=== PATIENT | male | born 1960 | race Caucasian/White ===

== ENCOUNTER 2016-12-19 18:34 | Inpatient (IN) | payer OTHER ==
[2016-12-19 19:00] LABS: Mean Cell Volume 93.8 fl (78-100); Mean Corpuscular Hemoglobin 32.2 pg (27-31); Mean Corpuscular Hgb Conc 34.3 g/dl (32-36); Mean Platelet Volume 10.2 fl (6.0-9.5); Neutrophil # 7.4 K/mm3 (1.3-6.0); Neutrophil % 73.1 % (42-75.0); Platelet Count 155 K/mm3 (150-450); Red Blood Count 3.73 M/mm3 (4.7-6.0); Red Cell Distribution Width 12.7 % (11.5-14.0); White Blood Count 10.1 K/mm3 (4.0-10.5)
--- NOTE | 2016-12-19 19:07 | ERNOTE ---
Medical Problem HPI - Narrative Date of Service: 12/19/16 - General Chief Complaint: Cellulitis Time Seen by Provider: 12/19/16 18:55 Source: patient Exam Limitations: no limitations - Immun/Allergies/Home Medications Immunizations: IMMUNIZATION HX History of Influenza Vaccine Yes Hx Pneumococcal Vaccination Yes Allergies/Adverse Reactions: Allergies cefazolin Allergy (Unknown, Verified 12/19/16 19:06) Vomiting Home Medications: HOME MEDICATIONS Cefadroxil [Duricef] 500 mg PO BID 10/13/16 [Last Taken 10/12/16] Citalopram Hydrobromide [Celexa] 20 mg PO DAILY 10/13/16 [Last Taken 10/12/16] Clopidogrel Bisulfate [Plavix] 75 mg PO DAILY 10/13/16 [Last Taken 10/13/16] Cyanocobalamin [Vitamin B-12] 1,000 mcg IM Q30D 10/13/16 [Last Taken Unknown] Gabapentin 600 mg PO BID 10/13/16 [Last Taken 10/12/16] Glimepiride [Amaryl] 2 mg PO DAILY 10/13/16 [Last Taken 10/12/16] Insulin Glargine,Hum.rec.anlog [Lantus] 30 units SC QAM 10/13/16 [Last Taken 03/24] Insulin Glargine,Hum.rec.anlog [Lantus] 60 units SC HS 10/13/16 [Last Taken 02/21] Ipratropium/Albuterol Sulfate [Combivent Respimat Inhal [place]] 1 puff IH QID 03/24 [Last Taken 10/12/16] Isosorbide Mononitrate [Imdur] 30 mg PO DAILY 10/13/16 [Last Taken 10/12/16] LORazepam [Ativan] 0.5 mg PO TID PRN 10/13/16 [Last Taken Unknown] Lisinopril [Zestril] 20 mg PO DAILY 10/13/16 [Last Taken 10/13/16] Metformin HCl [Metformin HCl ER] 1,000 mg PO BID 10/13/16 [Last Taken 10/13/16] Metoprolol Tartrate [Lopressor] 25 mg PO BID 10/13/16 [Last Taken 10/13/16] Nabumetone [Relafen] 500 mg PO BID 10/13/16 [Last Taken 10/13/16] Ranitidine HCl [Zantac] 150 mg PO BID 10/13/16 [Last Taken 10/13/16] Simvastatin 20 mg PO HS 10/13/16 [Last Taken 10/12/16] Sulfamethoxazole/Trimethoprim [Bactrim Ds] 1 tab PO BID #20 tab 10/13/16 [Last Taken Unknown] - History of Present History Narrative: Pt presents to the ER from wound clinic today, with c/o right foot ulcer, present for several months. Pt has been attending wound care clinic to address this wound, and despite multiple regiments of oral antibiotic, wound continues to worsen. Pt is a diabetic. Timing: constant, getting worse Severity: severe Review of Systems - Review of Systems Constitutional: Present: no symptoms reported EYE: Present: no symptoms reported ENT: Present: no symptoms reported Respiratory: Present: no symptoms reported Cardiology: Present: no symptoms reported Gastrointestinal/Abdominal: Present: no symptoms reported Genitourinary: Present: no symptoms reported Musculoskeletal: Present: See HPI Skin: Present: See HPI Neurological: Present: no symptoms reported Endocrine: Present: no symptoms reported Hematologic/Lymphatic: Present: no symptoms reported Psych: Present: no symptoms reported All Other Systems: All systems neg except as marked - Patient's Past Medical History Patient History - Medical: Diabetes Type 2, GERD, Obesity, Osteoarthritis Patient History - Cardiac/Respiratory: COPD, CVA/Stroke, Hypertension, Hyperlipidemia, Peripheral Vascular Disease Patient History - Cancer: No Hx of Cancer, Skin Patient History - Other: None - Family History Mother Family History - Medical: , Diabetes Type 2 Family History - Cardiac/Respiratory: CHF, Hypertension Father Family History - Medical: Family History - Cardiac/Respiratory: Hypertension - Social History Living Situations: home Abuse History: No History of abuse Psych History: No pertinent hx Alcohol Use: none Drug Use: none - Immunizations Hx Pneumococcal Vaccination: Yes History of Influenza Vaccine: Yes Physical Exam - Physical Exam General Appearance: Present: wd/wn, alert, no apparent distress Neck: Present: normal inspection, nontender Respiratory: Present: no respiratory distress, normal breath sounds, no accessory muscle use, chest nontender, lungs clear Cardiovascular/Chest: Present: regular rate, rhythm, no murmur Extremity Exam: Present: other - normal, except for right foot: Erythema of dorsal area, extending from mid section to forefoot. Large ulcer with eschar, approx 5 cm x 3 cm on lateral aspect of foot, with serosanguinous drainage. Neurological Exam: Present: alert, oriented, normal mood/affect Skin Exam: Present: other - normal, except for right foot: Erythema of dorsal area, extending from mid section to forefoot. Large ulcer with eschar, approx 5 cm x 3 cm on lateral aspect of foot, with serosanguinous drainage. ED Progress - Results and Orders Patient's Lab Results:: I have reviewed the patient's lab results. - Vital Signs Patient's Vital Signs:: I have reviewed the patient's vital signs. Vital Signs: Vital Signs 12/19/16 12/19/16 14:49 18:34 Temperature 37.7 C H Blood Pressure 134/72 Plan - Plan Plan: Case discussed with on-call physician, Dr. Ng; will admit to [facility]. Plan to treat with IV antibiotics, namely Zosyn and Vanocmycin. Departure - Departure Clinical Impression: Hyponatremia Diabetic foot ulcer associated with type 2 diabetes mellitus Qualifiers: Laterality: right Qualified Code(s): E11.621 - Type 2 diabetes mellitus with foot ulcer Disposition: [facility] Condition: Stable
[2016-12-19 19:16] LABS: Albumin * 3.1 gm/dl (3.4-5.0); Anion Gap 14.3 mmol/L (6.8-13.8); BUN/Creatinine Ratio 19.2 (9.0-21.6); Bilirubin, Total 0.5 mg/dL (0.0-1.1); Ca. Corrected For Albumin 9.1 mg/dL (8.4-10.2); Calcium * 8.7 mg/dL (7.9-10.9); Potassium 4.3 mmol/L (3.4-4.6); Total Protein 8.4 gm/dL (6.2-8.2)
--- OUTSIDE RECORDS SUMMARY | 2016-12-19 19:21 | XMS REPORT | Continuity of Care Document ---
:1960 Author Organization [facility] ([facility]) Address [address] [place] [address] Phone [phone] Care Team Providers Name Role Phone Kush Perez Primary Care Provider [phone] Source Comments This disclosure is being made pursuant to the Care Everywhere program, applicable federal and state laws, and may not contain all informaitonavailable regarding this patient.[facility] ([facility]) Active Allergies and Adverse Reactions Allergen Noted Date Severity Reactions Comments Cephalexin Nausea & Vomiting,Stomach Pain Current Medications Prescription Sig. Disp. Refills Start Date End Date Status Chlorpheniramine take by mouth 3 Active Maleate 4 mg Cap times daily. clopidogrel (PLAVIX) 75 take 75 mg by mouth Active mg tablet daily. insulin glargine inject 60 Units Active (LANTUS) 100 unit/mL subcutaneously at injection bedtime. 60 units sub-q at HS metFORMIN (GLUCOPHAGE) take 850 mg by mouth Active 850 mg tablet 3 times daily. metoPROLol (LOPRESSOR) take 25 mg by mouth 2 Active 25 mg tablet times daily. MULTIVITAMINS (MULTIPLE take by mouth. Active VITAMIN PO) nitroglycerin place 0.4 mg under Active (NITROSTAT) 0.4 mg SL the tongue every 5 tablet minutes as needed for Chest pain. Ranitidine HCl (ZANTAC) take 150 mg by mouth Active 150 mg Cap 2 times daily. simvastatin (ZOCOR) 10 take 2 Tabs by mouth Active mg tablet every evening. paroxetine (PAXIL CR) take 37.5 mg by mouth Active 37.5 mg CR tablet daily. isosorbide mononitrate take 30 mg by mouth Active (IMDUR) 30 mg CR tablet Every morning. insulin lispro inject 20 Units Active (HUMALOG) 100 unit/mL subcutaneously 3 cartridge times daily before meals. SYRINGE W-NDL, DISP., 4 times daily. Active INSULIN (INSULIN SYRINGE-NEEDLE U-100) METHOCARBAMOL Take by mouth. Active (ROBAXIN-750 PO) lisinopril (PRINIVIL) Take 20 mg by mouth Active 20 mg tablet daily. Active Problems Problem Noted Date HTN 05/10/2009 Type II or unspecified type diabetes mellitus with peripheral circulatory 12/2008 disorders, not stated as uncontrolled(250.70) CVA (cerebral infarction) 05/10/2009 Mixed hyperlipidemia 05/10/2009 Morbid obesity 06/26/2002 Primary localized osteoarthrosis, lower leg 06/26/2002 Social History Tobacco Use Types Packs/Day Years Used Date Current Every Day Smoker Cigarettes 1 36 Smokeless Tobacco: Never Used Comments:had smoked up to 3ppd Alcohol Use Drinks/Week oz/Week Comments No Last Filed Vital Signs Vital Sign Reading Time Taken Blood Pressure 112/60 01/20/2011 1:34 PM CDT Pulse 76 01/20/2011 1:34 PM CDT Temperature 36.1 C (97 F) 01/20/2011 1:34 PM CDT Respiratory Rate 24 01/20/2011 1:34 PM CDT Height 1.93 m (6' 3.98") 10/17/2010 10:25 AM [employer] Weight 129.729 kg (286 lb) 01/20/2011 1:34 PM CDT Body Mass Index 34.83 01/20/2011 1:34 PM CDT Oxygen Saturation 94% 11/21/2008 2:00 PM [employer]IO INST[employer] Plan of Care Health Maintenance Due Date Last Done Comments HCV Screening 1960 Hepatitis B Vaccine (1 of 3 - 1960 Primary Series) Tdap Vaccine 1970 MMR Vaccine 1977 Td Vaccine 1977 Pneumococcal Vaccine (1 of 1 1978 - PPSV23) Colonoscopy 04/01/2009 Prostate Cancer Screening 2009 DIABETIC: Cholesterol 11/21/2009 11/21/2008 Diabetic: Hdl 11/21/2009 11/21/2008 Diabetic: Ldl 11/21/2009 11/21/2008 DIABETIC: Triglycerides 11/21/2009 11/21/2008 DIABETIC: Microalbumin 05/24/2010 05/24/2009 DIABETIC: Foot Exam 03/21/2011 DIABETIC: Retinal Eye Exam 03/21/2011 DIABETIC: Hemoglobin A1C 04/16/2011 10/17/2010, Additional history exists 05/24/2009, 11/21/2008 Influenza Vaccine: Seasonal 05/08/2016 (#1) Results from Last 3 Months Not on file
[2016-12-19] MEDS ORDERED: WATER IV SCH ×2 (20:00)
[2016-12-19] MEDS ORDERED: DEXTROSE 5% IV SCH ×2 (20:00)
[2016-12-19] MEDS ORDERED: VANCOMYCIN HCL IV SCH ×2 (20:00)
[2016-12-19] MEDS: PIPERACILLIN SODIUM/TAZOBACTAM 3.375 GM in DEXTROSE 5 % IN WATER 100 ML IV SCH ×2 (20:29)
--- OUTSIDE RECORDS SUMMARY | 2016-12-19 21:51 | XMS REPORT | Continuity of Care Document ---
:1960 Author Organization [facility] ([facility]) Address [address] [place] [address] Phone [phone] Care Team Providers Name Role Phone Kush Perez Primary Care Provider [phone] Source Comments This disclosure is being made pursuant to the Care Everywhere program, applicable federal and state laws, and may not contain all informaitonavailable regarding this patient.[facility] ([facility]) Active Allergies and Adverse Reactions Allergen [...] 1.93 m (6' 3.98") 10/17/2010 10:25 AM [employer]ERRICK MAN Weight 129.729 kg (286 lb) 01/20/2011 1:34 PM CDT Body Mass Index 34.83 01/20/2011 1:34 PM CDT Oxygen Saturation 94% 11/21/2008 2:00 PM [employer]ERRICK MAN Plan of Care Health Maintenance Due Date [...]
--- NOTE | 2016-12-19 23:32 | HP ---
Chief Complaint - Chief Complaint Date of Service: 12/19/16 Time of Service: 22:00 Chief Complaint: Chronic right foot ulcer and new ulceration History of Present Illness: 56 years old male adm to the hospital from the ER with reports of right foot diabetic ulcer, cellulitis and formation of new ulceration to right foot. Pt stated he was seen by Dr Alston a few weeks ago and was taking Bactrim BID and has not missed any dose. Despite his compliance he notice new ulcer forming adjacent to existing ulcer on right foot. Pt stated he was seen at wound clinic for new ulcers and pain a few days prior that self resolved. 12/19/16 I/D of ulcers and specimen was collected and sent to lab. Due to pt failure on out-pt therapy he was sent to the ER for IV antbx in-pt. Vanco and zosyn was initiated in ER, MRI right foot pending, pt denies fever chills, palpitation, drainage of wounds prior to adm. PMH significant for diabetes, hypertension, smoker and OK. Plan of care discussed with pt he verbalized understandings and agree. - Patient's Past Medical History Patient History - Medical: Diabetes Type 2, GERD, Obesity, Osteoarthritis, Other - smoker, diabetic neuropathy, diabetic ulcer Patient History - Cardiac/Respiratory: Hypertension, Hyperlipidemia, Peripheral Vascular Disease Patient History - Cancer: No Hx of Cancer, Skin Patient History - Other: None - Family History Mother Family History - Medical: , Diabetes Type 2 Family History - Cardiac/Respiratory: CHF, Hypertension Father Family History - Medical: Family History - Cardiac/Respiratory: Hypertension - Social History Living Situations: home Abuse History: No History of abuse Psych History: No pertinent hx Have you smoked in the past 12 months: Yes Do you dip or chew tobacco: No Alcohol Use: none Drug Use: none - Immunizations Hx Pneumococcal Vaccination: Yes History of Influenza Vaccine: Yes Review Of Systems (GEN) - Review of Systems Generalized/Overall Review: Present: No Symptoms Reported EENTM: Present: No Symptoms Reported Respiratory: Present: No Symptoms Reported Cardiac: Present: No Symptoms Reported Abdominal: Present: No Symptoms Reported Genitourinary: Present: No Symptoms Reported Musculoskeletal: Present: No Symptoms Reported Neurological: Present: No Symptoms Reported Skin: Present: Other - right foot diabetic ulcer, cellulitis Endocrine: Present: No Symptoms Reported Allergies/Adverse Reactions: Allergies Allergy/AdvReac Type Severity Reaction Status Date / Time cefazolin Allergy Intermediate Vomiting Verified 12/19/16 23:45 Home Medications: HOME MEDICATIONS Cefadroxil [Duricef] 500 mg PO BID 10/13/16 [Last Taken 10/12/16] Citalopram Hydrobromide [Celexa] 20 mg PO DAILY 10/13/16 [Last Taken 10/12/16] Clopidogrel Bisulfate [Plavix] 75 mg PO DAILY 10/13/16 [Last Taken 10/13/16] Cyanocobalamin [Vitamin B-12] 1,000 mcg IM Q30D 10/13/16 [Last Taken Unknown] Gabapentin 600 mg PO BID 10/13/16 [Last Taken 10/12/16] Glimepiride [Amaryl] 2 mg PO DAILY 10/13/16 [Last Taken 10/12/16] Insulin Glargine,Hum.rec.anlog [Lantus] 30 units SC QA 10/13/16 [Last Taken 03/24] Insulin Glargine,Hum.rec.anlog [Lantus] 60 units SC HS 10/13/16 [Last Taken 02/21] Ipratropium/Albuterol Sulfate [Combivent Respimat Inhal [place]] 1 puff IH QID 03/24 [Last Taken 10/12/16] Isosorbide Mononitrate [Imdur] 30 mg PO DAILY 10/13/16 [Last Taken 10/12/16] LORazepam [Ativan] 0.5 mg PO TID PRN 10/13/16 [Last Taken Unknown] Lisinopril [Zestril] 20 mg PO DAILY 10/13/16 [Last Taken 10/13/16] Metformin HCl [Metformin HCl ER] 1,000 mg PO BID 10/13/16 [Last Taken 10/13/16] Metoprolol Tartrate [Lopressor] 25 mg PO BID 10/13/16 [Last Taken 10/13/16] Nabumetone [Relafen] 500 mg PO BID 10/13/16 [Last Taken 10/13/16] Ranitidine HCl [Zantac] 150 mg PO BID 10/13/16 [Last Taken 10/13/16] Simvastatin 20 mg PO HS 10/13/16 [Last Taken 10/12/16] Sulfamethoxazole/Trimethoprim [Bactrim Ds] 1 tab PO BID #20 tab 10/13/16 [Last Taken Unknown] Exam - Exam Vital Signs: Vital Signs - Last Taken Temp 37.3 C 12/19/16 20:00 Pulse 100 12/19/16 22:06 Resp 16 12/19/16 22:06 BP 115/76 12/19/16 22:06 Pulse Ox 98 12/19/16 22:06 Constitutional: Present: Alert, Oriented x3, Cooperative, Well developed, No distress, Middle aged ENT Exam: Present: moist mucous membranes Eye Exam: bilateral eye: PERRL Neck: Present: full range of motion Back Exam: Present: normal inspection Respiratory: Present: chest non-tender, lungs clear, normal breath sounds, no respiratory distress Cardiovascular/Chest: Present: normal peripheral pulses, regular rate, rhythm, no chest tenderness, no edema Abdomen: Present: Normal bowel sounds, soft, nontender, nondistended, no rebound tenderness /Rectal: Present: Exam deferred Extremity: Present: normal range of motion, swelling - right foot Skin Exam: Present: other - right foot cellulitis, diabetic ulcers Lymphatic: Present: no adenopathy Neurologic: Present: oriented x 3 Appearance: Present: appropriate insight Eye contact: Present: cooperative Thoughts: Present: normal thought pattern Diagnostic Studies: Laboratory Results WBC 10.1 K/mm3 (4.0-10.5) 12/19/16 18:45 RBC 3.73 M/mm3 (4.7-6.0) L 12/19/16 18:45 Hgb 12.0 gm/dL (13.5-18.0) L 12/19/16 18:45 Hct 35.0 % (42.0-52.0) L 12/19/16 18:45 MCV 93.8 fl (78-100) 12/19/16 18:45 MCH 32.2 pg (27-31) H 12/19/16 18:45 MCHC 34.3 g/dl (32-36) 12/19/16 18:45 RDW 12.7 % (11.5-14.0) 12/19/16 18:45 Plt Count 155 K/mm3 (150-450) 12/19/16 18:45 MPV 10.2 fl (6.0-9.5) H 12/19/16 18:45 Immature Gran % (Auto) 0.80 % (0.001-0.429) H 12/19/16 18:45 Immature Gran # (Auto) 0.08 K/mm3 (0.000-0.0310) H 12/19/16 18:45 Neutrophils % 73.1 % (42-75.0) 12/19/16 18:45 Lymphocytes % 16.9 % (20-51) L 12/19/16 18:45 Monocytes % 8.1 % (0.0-9) 12/19/16 18:45 Eosinophils % 0.9 % (0.0-3.0) 12/19/16 18:45 Basophils % 0.2 % (0.0-1.0) 12/19/16 18:45 Nucleated RBC % 0.0 k/mm3 (0-1) 12/19/16 18:45 Neutrophils # 7.4 K/mm3 (1.3-6.0) H 12/19/16 18:45 Lymphocytes # 1.7 k/mm3 (1.5-3.5) 12/19/16 18:45 Monocytes # 0.8 k/mm3 (0.0-1.0) 12/19/16 18:45 Eosinophils # 0.1 k/mm3 (0.0-0.7) 12/19/16 18:45 Absolute Basophils 0.0 k/mm3 (0.0-0.1) 12/19/16 18:45 ESR 102 mm/hr (0-10) H 12/19/16 18:45 Sodium 129 mmol/L (132-142) L 12/19/16 18:45 Plasma Sodium 129 mmol/L (130-142) L 12/19/16 18:45 Potassium 4.3 mmol/L (3.4-4.6) 12/19/16 18:45 Chloride 94 mmol/L (97-106) L 12/19/16 18:45 Carbon Dioxide 25.0 mmol/L (24-32.6) 12/19/16 18:45 Anion Gap 14.3 mmol/L (6.8-13.8) H 12/19/16 18:45 BUN 20 mg/dL (6-23) D 12/19/16 18:45 Creatinine 1.04 mg/dL (0.4-1.4) 12/19/16 18:45 Est GFR (Non-Af Amer) 78 mL/min (60-130) 12/19/16 18:45 BUN/Creatinine Ratio 19.2 (9.0-21.6) 12/19/16 18:45 Random Glucose 129 mg/dL (70-110) H 12/19/16 18:45 Calcium 8.7 mg/dL (7.9-10.9) 12/19/16 18:45 Calcium Adj for Albumin 9.1 mg/dL (8.4-10.2) 12/19/16 18:45 Total Bilirubin 0.5 mg/dL (0.0-1.1) 12/19/16 18:45 AST 17 U/L (0-48) 12/19/16 18:45 ALT 18 U/L (19-67) L 12/19/16 18:45 Alkaline Phosphatase 116 U/L (50-170) 12/19/16 18:45 C-Reactive Prot, Quant 14.4 mg/dL (0.0-0.9) H 12/19/16 18:45 Total Protein 8.4 gm/dL (6.2-8.2) H 12/19/16 18:45 Albumin 3.1 gm/dl (3.4-5.0) L 12/19/16 18:45 Assessment/Plan - Narrative Narrative: Diabetic ulcer right foot with new developed ulcer and abscess Pt failed out-pt antbx therapy oral Bactrim BID He was seen in wound clinic today with Dr Alston had I/D of right foot. Out-pt X-ray of right foot result still pending MRI right foot, Wound cultures and blood culture pending Initiated IV antbx vanco and zosyn, pharmacy to dose. 10/24 CRP 1.4---->14.4 on this adm, will trend 10/24 ESR 28---->102 on this adm Monitor CBC and cmp in am Consult Dr Alston for wound care Cellulitis right foot On adm temp 37.7--->37.3 WBC_ WNL Plan same as #1 Hyponatremia On adm Na+ 129 Normal saline @100ml/hr monitor CMP in am Diabetic Acc-check AC+HS and low dose SSI may resume home dose of medications when list is provided Consistent carb diet A1c pending Substance abuse smoking cessation Nicotine patch Hypertension- stable On adm BP 115/76 Monitor vital signs Code status: Full VTE ppx: SCd and ambulate Anticipate discharge home 1-3 days possible out-pt IV antbx and follow up with Dr Alston Time 45 minutes - Assessment/Plan (1) Diabetic foot ulcer associated with type 2 diabetes mellitus Problem: Acute Qualifiers: Laterality: right Qualified Code(s): E11.621 - Type 2 diabetes mellitus with foot ulcer; L97.519 - Non-pressure chronic ulcer of other part of right foot with unspecified severity (2) Hyponatremia Problem: Acute (3) DM type 2 (diabetes mellitus, type 2) Problem: Chronic (4) Hypertension Problem: Chronic Qualifiers: Hypertension type: essential hypertension Qualified Code(s): I10 - Essential (primary) hypertension
[2016-12-20] MEDS ORDERED: NORMAL SALINE 1,000 ML IV PRN (01:22)
[2016-12-20] MEDS: PIPERACILLIN SODIUM/TAZOBACTAM 3.375 GM in DEXTROSE 5 % IN WATER 100 ML IV SCH ×8 (03:05→18:29)
[2016-12-20 07:08] LABS: Hemoglobin 11.2 gm/dL (13.5-18.0); Mean Cell Volume 93.2 fl (78-100); Mean Corpuscular Hemoglobin 31.6 pg (27-31); Mean Corpuscular Hgb Conc 33.9 g/dl (32-36); Mean Platelet Volume 10.9 fl (6.0-9.5); Neutrophil # 3.5 K/mm3 (1.3-6.0); Neutrophil % 66.6 % (42-75.0); Platelet Count 128 K/mm3 (150-450); Red Blood Count 3.54 M/mm3 (4.7-6.0); Red Cell Distribution Width 12.6 % (11.5-14.0); White Blood Count 5.3 K/mm3 (4.0-10.5)
[2016-12-20] MEDS: INSULIN LISPRO 100 UNITS/ML VIAL SC SCH ×4 (07:20→20:08)
[2016-12-20 07:24] LABS: Albumin * 2.7 gm/dl (3.4-5.0); Anion Gap 14.6 mmol/L (6.8-13.8); BUN/Creatinine Ratio 16.9 (9.0-21.6); Bilirubin, Total 0.6 mg/dL (0.0-1.1); CRP 11.6 mg/dL (0.0-0.9); Calcium * 8.3 mg/dL (7.9-10.9); Carbon Dioxide 23.8 mmol/L (24-32.6); Potassium 4.4 mmol/L (3.4-4.6); Total Protein 7.4 gm/dL (6.2-8.2)
[2016-12-20 07:33] LABS: Hemoglobin A1C 6.8 % (4.00-6.0)
[2016-12-20] MEDS: VANCOMYCIN HCL 1.5 GM in DEXTROSE 5 % IN WATER 500 ML IV SCH ×4 (10:42→22:43)
[2016-12-20] MEDS: NICOTINE 21 MG PATC TD SCH (10:50)
[2016-12-20] MEDS ORDERED: ENOXAPARIN SODIUM 40 MG/0.4 ML SYRG SC SCH (15:00)
[2016-12-20] MEDS: CITALOPRAM HYDROBROMIDE 20 MG TABLET PO SCH (17:46)
[2016-12-20] MEDS: METOPROLOL TARTRATE 25 MG TABLET PO SCH ×2 (17:47→20:24)
[2016-12-20] MEDS: GABAPENTIN 600 MG TABLET PO SCH ×2 (17:47→20:23)
[2016-12-20] MEDS: FAMOTIDINE 20 MG TABLET PO SCH ×2 (17:48→20:23)
[2016-12-20] MEDS: ISOSORBIDE MONONITRATE 30 MG TAB.SR.24H PO SCH (17:48)
[2016-12-20] MEDS: CLOPIDOGREL BISULFATE 75 MG TABLET PO SCH (17:48)
[2016-12-20] MEDS: LISINOPRIL 20 MG TABLET PO SCH (17:49)
[2016-12-20] MEDS: ALBUTEROL SULFATE/IPRATROPIUM 3 ML NEBU IH SCH ×2 (19:04→19:05)
[2016-12-20] MEDS: INSULIN GLARGINE,HUM.REC.ANLOG 100 UNITS/ML VIAL SC SCH (20:08)
[2016-12-20] MEDS: SIMVASTATIN 20 MG TABLET PO SCH (20:24)
[2016-12-20] MEDS ORDERED: ALBUTEROL SULFATE/IPRATROPIUM 3 ML NEBU IH PRN (21:06)
--- NOTE | 2016-12-20 21:21 | PN ---
Subjective - Date and Time Seen Date: 12/20/16 Time: 19:30 Subjective Narrative: patient seen today after dressing change, he stated it was a little painful during dressing change. Wound site with erythema that have not gotten any worst. Pt denies fever, chills and drainage from wound site. MRI right foot was done and result still pending. Objective - Review of Systems Generalized/Overall Review: Reports: No Symptoms Reported EENTM: Reports: No Symptoms Reported Respiratory: Reports: No Symptoms Reported Cardiac: Reports: No Symptoms Reported Abdominal: Reports: No Symptoms Reported Genitourinary Symptoms: Reports: No Symptoms Reported Musculoskeletal Complaints: Reports: No Symptoms Reported Neurological: Reports: No Symptoms Reported Skin: Reports: Other - right foot diabetic ulcer and cellulitis Endocrine: Reports: No Symptoms Reported - Vitals Vitals: Last Vital Signs Temp 36.7 C 12/20/16 19:56 Pulse 78 12/20/16 20:24 Resp 20 12/20/16 19:56 BP 111/61 12/20/16 20:24 Pulse Ox 94 12/20/16 19:56 - Abnormal Lab Findings Abnormal Lab Findings: Abnormal Lab Results 12/20/16 12/20/16 12/20/16 Range/Units 06:50 06:50 06:50 RBC 3.54 L (4.7-6.0) M/mm3 Hgb 11.2 L (13.5-18.0) gm/dL Hct 33.0 L (42.0-52.0) % MCH 31.6 H (27-31) pg Plt Count 128 L (150-450) K/mm3 MPV 10.9 H (6.0-9.5) fl Immature Gran % (Auto) 0.80 H (0.001-0.429) % Immature Gran # (Auto) 0.04 H (0.000-0.0310) K/mm3 Monocytes % 9.4 H (0.0-9) % Lymphocytes # 1.1 L (1.5-3.5) k/mm3 Sodium 131 L (132-142) mmol/L Carbon Dioxide 23.8 L (24-32.6) mmol/L Anion Gap 14.6 H (6.8-13.8) mmol/L Random Glucose 154 H (70-110) mg/dL Hemoglobin A1c 6.8 H (4.00-6.0) % ALT 15 L (19-67) U/L C-Reactive Prot, Quant 11.6 H (0.0-0.9) mg/dL Albumin 2.7 L (3.4-5.0) gm/dl - Exam Constitutional: Present: Alert, Oriented x3, Cooperative, Well developed, No distress ENT Exam: Present: moist mucous membranes Neck: Present: full range of motion Breasts: Present: Exam deferred Respiratory: Present: chest non-tender, normal breath sounds, no respiratory distress, decreased breath sounds Cardiovascular/Chest: Present: normal peripheral pulses, regular rate, rhythm, no chest tenderness Abdomen: Present: Normal bowel sounds, soft, nontender, nondistended, no rebound tenderness /Rectal: Present: Exam deferred Extremity: Present: lower extremity edema - right foot with diabetic ulcer, pedal edema - right foot, slow capillary refill - right pedal, swelling - right leg Skin Exam: Present: other - erythema right foot Neurologic: Present: oriented x 3 Appearance: Present: appropriate appearance Eye contact: Present: cooperative Thoughts: Present: normal thought pattern Assessment/Plan Plan Narrative: Diabetic ulcer right foot with new developed ulcer and abscess Pt failed out-pt antbx therapy while on oral Bactrim BID 12/19/16 seen at wound clinic with Dr Alsotn had I/D of right foot. Out-pt X-ray of right foot:pending results MRI right foot: still pending Wound cultures and blood culture pending Continue with IV antbx vanco and zosyn, pharmacy to dose. CRP on this adm 14.4 ---->11.6 trending down 10/24 ESR 28---->102 on this adm Monitor CBC and cmp in am Consult Dr Alston for wound care Cellulitis right foot On adm temp 37.7--->37.3---> remain afebrile since adm WBC_ WNL Plan same as #1 Hyponatremia- gradually improving On adm Na+ 129--->131 D/C Normal saline @100ml/hr monitor CMP in am Diabetic Acc-check AC+HS and low dose SSI Resumed home dose of medications Consistent carb diet A1c 6.8 Substance abuse smoking cessation Nicotine patch Hypertension- stable Monitor vital signs Continue home medication Code status: Full VTE ppx: SCd and ambulate Anticipate discharge home 1-2 days possible out-pt IV antbx and follow up with Dr Alston Time 20 minutes - Problems/Diagnosis (1) Diabetic foot ulcer associated with type 2 diabetes mellitus Problem: Acute Qualifiers: Laterality: right Qualified Code(s): E11.621 - Type 2 diabetes mellitus with foot ulcer; L97.519 - Non-pressure chronic ulcer of other part of right foot with unspecified severity (2) Hyponatremia Problem: Acute (3) DM type 2 (diabetes mellitus, type 2) Problem: Chronic (4) Hypertension Problem: Chronic Qualifiers: Hypertension type: essential hypertension Qualified Code(s): I10 - Essential (primary) hypertension
[2016-12-21] MEDS: PIPERACILLIN SODIUM/TAZOBACTAM 3.375 GM in DEXTROSE 5 % IN WATER 100 ML IV SCH ×4 (04:14→14:25)
[2016-12-21 06:25] LABS: Hematocrit 31.8 % (42.0-52.0); Hemoglobin 10.5 gm/dL (13.5-18.0); Mean Cell Volume 96.1 fl (78-100); Mean Corpuscular Hemoglobin 31.7 pg (27-31); Mean Platelet Volume 10.8 fl (6.0-9.5); Platelet Count 132 K/mm3 (150-450); Red Blood Count 3.31 M/mm3 (4.7-6.0); Red Cell Distribution Width 12.7 % (11.5-14.0); White Blood Count 4.7 K/mm3 (4.0-10.5)
[2016-12-21 06:28] LABS: Total Cells Counted 100
[2016-12-21 06:35] LABS: Anion Gap 12.4 mmol/L (6.8-13.8); BUN/Creatinine Ratio 12.9 (9.0-21.6); CRP 6.9 mg/dL (0.0-0.9); Calcium * 8.5 mg/dL (7.9-10.9); Carbon Dioxide 27.1 mmol/L (24-32.6); Estimated Creat Clear 117.7; Potassium 4.5 mmol/L (3.4-4.6)
[2016-12-21 06:59] LABS: Atypical (Reactive) Lymph 6 % (0-2); Eosinophil 6 % (0-3); Hypochromia Trace; Lymphocyte 17 % (20-51); Monocyte 3 % (0-9); Neutrophil 68 % (42-75); Neutrophil # 3.2 K/mm3 (1.3-6.0); Platelet Estimate Decreased (NORMAL)
[2016-12-21] MEDS: INSULIN LISPRO 100 UNITS/ML VIAL SC SCH ×4 (07:08→20:31)
[2016-12-21] MEDS: CITALOPRAM HYDROBROMIDE 20 MG TABLET PO SCH (08:55)
[2016-12-21] MEDS: ISOSORBIDE MONONITRATE 30 MG TAB.SR.24H PO SCH (08:56)
[2016-12-21] MEDS: LISINOPRIL 20 MG TABLET PO SCH (08:57)
[2016-12-21] MEDS: INSULIN GLARGINE,HUM.REC.ANLOG 100 UNITS/ML VIAL SC SCH ×2 (08:57→20:47)
[2016-12-21] MEDS: METOPROLOL TARTRATE 25 MG TABLET PO SCH ×2 (08:58→20:43)
[2016-12-21] MEDS: FAMOTIDINE 20 MG TABLET PO SCH ×2 (08:58→20:44)
[2016-12-21] MEDS: CLOPIDOGREL BISULFATE 75 MG TABLET PO SCH (08:59)
[2016-12-21] MEDS: GABAPENTIN 600 MG TABLET PO SCH ×2 (08:59→20:43)
[2016-12-21] MEDS: NICOTINE 21 MG PATC TD SCH (09:03)
[2016-12-21] MEDS: VANCOMYCIN HCL 1.5 GM in DEXTROSE 5 % IN WATER 500 ML IV SCH ×4 (09:05→21:27)
--- NOTE | 2016-12-21 12:09 | PN ---
Subjective - Date and Time Seen Date: 12/21/16 Time: 12:00 Subjective Narrative: Mr. Tyler had no acute events overnight. He remains afebrile. He reports less pain in the right foot. Preliminary cultures returned growing staph aureus. Sensitivities will be available tomorrow. MRI of the foot was obtained on 12/19 which showed definite osteomyelitis of the right fifth metatarsal. He will be seen by Dr. Alston today. His appetite is good. He reports blood glucose has been well controlled we'll hospitalize. No nausea or vomiting. No chest pain or shortness of breath. Objective - Review of Systems Generalized/Overall Review: Reports: No Symptoms Reported Musculoskeletal Complaints: Reports: Other - Minimal pain in the right foot with dressing changes. - Vitals Vitals: Last Vital Signs Temp 37 C 12/21/16 11:24 Pulse 86 12/21/16 11:24 Resp 20 12/21/16 11:24 BP 114/78 12/21/16 11:24 Pulse Ox 98 12/21/16 11:24 - Abnormal Lab Findings Abnormal Lab Findings: Abnormal Lab Results 12/21/16 12/21/16 Range/Units 06:17 06:17 RBC 3.31 L (4.7-6.0) M/mm3 Hgb 10.5 L (13.5-18.0) gm/dL Hct 31.8 L (42.0-52.0) % MCH 31.7 H (27-31) pg Plt Count 132 L (150-450) K/mm3 MPV 10.8 H (6.0-9.5) fl Lymphocytes % (Manual) 17 L (20-51) % Eosinophils % (Manual) 6 H (0-3) % Lymphocytes # (Manual) 0.8 L (1.5-3.5) k/mm3 Atypic/Reactive Lymphs 6 H (0-2) % Platelet Estimate Decreased L (NORMAL) Random Glucose 147 H (70-110) mg/dL C-Reactive Prot, Quant 6.9 H (0.0-0.9) mg/dL - Exam Constitutional: Present: Alert, Oriented x3, Cooperative ENT Exam: Present: normal ENT inspection Respiratory: Present: chest non-tender, lungs clear, normal breath sounds Cardiovascular/Chest: Present: normal peripheral pulses, regular rate, rhythm, no chest tenderness Abdomen: Present: Normal bowel sounds, soft, nontender Extremity: Present: normal range of motion, pedal edema - Mild edema in the RLE , mainly around ankle. Skin Exam: Present: other - Right lower extremity remains warm. Erythema is improving. Wound examined today. Black eschar with some slough in the wound base. malodorous. Moderate amount of yellow, thin drainage. Neurologic: Present: [facility] [facility] psychiatrist II-XII nml as tested Appearance: Present: appropriate appearance Assessment/Plan - Problems/Diagnosis (1) Hyponatremia Problem: Acute Narrative: Improving. Continue to monitor. (2) DM type 2 (diabetes mellitus, type 2) Problem: Chronic Narrative: Blood glucose has ranged from 128-234 mg/dL over the past 24 hours, and he received a total of 3 units of Humalog and 90 units of glargine. Continue glargine at current dose of 30 units every morning and 60 units every evening. He is currently on a SUDHAKAR inhibitor (lisinopril) and statin (simvastatin). ASA 81 mg daily orderd. (3) Diabetic ulcer of right foot due to type 2 diabetes mellitus Problem: Chronic Narrative: Preliminary culture results are growing staph aureus. 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 Narrow antibiotic coverage to include vancomycin. Dr. Alston has been consulted and we appreciate her recommendations. (4) Hypertension Problem: Chronic Qualifiers: Hypertension type: essential hypertension Qualified Code(s): I10 - Essential (primary) hypertension Narrative: Continue lisinopril 20 mg po daily, metoprolol tartrate 25 mg po BID.
--- NOTE | 2016-12-21 12:51 | PN ---
Progess Note - Interim Narrative: 12/21/16 12:45 MRI foot shows osteomyelitis and thus, definitive treatment will be surgery. Discussed with Dr. Alston and her plan is to take the patient to the OR tomorrow (12.22.2016) afternoon. Pre-op bloodwork, CXR and EKG ordered. Pre-op eval documentation pending results.
[2016-12-21 13:15] LABS: Hematocrit 32.3 % (42.0-52.0); Hemoglobin 10.7 gm/dL (13.5-18.0); Mean Cell Volume 96.7 fl (78-100); Mean Corpuscular Hgb Conc 33.1 g/dl (32-36); Mean Platelet Volume 10.6 fl (6.0-9.5); Platelet Count 137 K/mm3 (150-450); Red Blood Count 3.34 M/mm3 (4.7-6.0); Red Cell Distribution Width 12.9 % (11.5-14.0); White Blood Count 6.2 K/mm3 (4.0-10.5)
[2016-12-21 13:20] LABS: BUN/Creatinine Ratio 15.9 (9.0-21.6); CRP 5.9 mg/dL (0.0-0.9); Calcium * 8.5 mg/dL (7.9-10.9); Carbon Dioxide 26.6 mmol/L (24-32.6); Potassium 4.6 mmol/L (3.4-4.6)
[2016-12-21 13:24] LABS: Prothrombin Time (Patient) 10.7 Seconds (9.4-11.4)
[2016-12-21 13:27] LABS: INR 1.03 INR (0.90-1.10); Partial Thrombolplastin Time 28.1 Seconds (24-32)
--- NOTE | 2016-12-21 16:33 | PN ---
Subjective - Date and Time Seen Date: 12/21/16 Time: 11:40 Subjective Narrative: Pt evaluated at bedside resting. States that he is feeling much better today after receiving IV ABX. Denies any N/V/F/C. Denies right foot pain. Objective - Review of Systems Neurological: Reports: Numbness Skin: Reports: Other - Ulceration, cellulitis right foot. Misc: All systems neg except as marked - Vitals Vitals: Last Vital Signs Temp 36.6 C 12/21/16 14:40 Pulse 68 12/21/16 14:40 Resp 20 12/21/16 14:40 BP 101/58 12/21/16 14:40 Pulse Ox 96 12/21/16 14:40 - Abnormal Lab Findings Abnormal Lab Findings: Abnormal Lab Results 12/21/16 12/21/16 12/21/16 Range/Units 06:17 06:17 13:10 RBC 3.31 L (4.7-6.0) M/mm3 Hgb 10.5 L (13.5-18.0) gm/dL Hct 31.8 L (42.0-52.0) % MCH 31.7 H (27-31) pg Plt Count 132 L (150-450) K/mm3 MPV 10.8 H (6.0-9.5) fl Lymphocytes % (Manual) 17 L (20-51) % Eosinophils % (Manual) 6 H (0-3) % Lymphocytes # (Manual) 0.8 L (1.5-3.5) k/mm3 Atypic/Reactive Lymphs 6 H (0-2) % Platelet Estimate Decreased L (NORMAL) Sodium 130 L (132-142) mmol/L Chloride 96 L (97-106) mmol/L Random Glucose 147 H 176 H (70-110) mg/dL C-Reactive Prot, Quant 6.9 H 5.9 H (0.0-0.9) mg/dL 12/21/16 Range/Units 13:10 RBC 3.34 L (4.7-6.0) M/mm3 Hgb 10.7 L (13.5-18.0) gm/dL Hct 32.3 L (42.0-52.0) % MCH 32.0 H (27-31) pg Plt Count 137 L (150-450) K/mm3 MPV 10.6 H (6.0-9.5) fl Lymphocytes % (Manual) (20-51) % Eosinophils % (Manual) (0-3) % Lymphocytes # (Manual) (1.5-3.5) k/mm3 Atypic/Reactive Lymphs (0-2) % Platelet Estimate (NORMAL) Sodium (132-142) mmol/L Chloride (97-106) mmol/L Random Glucose (70-110) mg/dL C-Reactive Prot, Quant (0.0-0.9) mg/dL Comments:: MRI right foot reviewed, significant for osteomyelitis of the right 5th metatarsal head and neck. - Exam Constitutional: Present: Alert, Oriented x3, Cooperative, No distress Extremity: Present: lower extremity edema Skin Exam: Present: other - Ulceration to lateral right foot unchanged in size from wound center evaluation on 12/19/2016. Erythema has reduced, but still present. Still with moderate serosanguinous drainage. No purulence expressed. Neurologic: Present: sensory deficit Assessment/Plan Plan Narrative: Discussed results of MRI with pt. Recommend going to OR for I&D and removal of infected bone. Discussed risks vs benefits of the procedure and pt wishes to proceed. Will be consented for I&D right foot with removal of infected tissue and bone. Will plan to go to OR tomorrow, 12/22/2016. NPO after midnight tonight. - Problems/Diagnosis (1) Cellulitis and abscess of foot Problem: Acute Narrative: Continue IV ABX. Plan to go to OR tomorrow for I&D right foot. (2) Osteomyelitis of right foot Problem: Acute Qualifiers: Osteomyelitis type: other acute Qualified Code(s): M86.171 - Other acute osteomyelitis, right ankle and foot Narrative: MRI significant for osteomyelitis of the right 5th metatarsal head and neck. Plan to go to OR tomorrow for removal of infected bone. 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 New dressing applied today.
[2016-12-21] MEDS: MUPIROCIN 22 APPL TUBE TP SCH (20:42)
[2016-12-21] MEDS: SIMVASTATIN 20 MG TABLET PO SCH (20:44)
--- NOTE | 2016-12-22 05:14 | PN ---
Subjective - Date and Time Seen Date: 12/22/16 Time: 06:17 Subjective Narrative: patient seen today AOX3 no acute distress, pt denies pain to right foot. No chest pain, palpitation, shortness of breath, nausea or vomiting. pt stated last LA was 2008 since then his EKG have always been NSR. pt a smoker and contemplating quitting. Pt anticipating surgery today. Pt have moderate risk base on RCRI risk calculator. He his medically appropriate for planned procedure. Objective - Review of Systems Generalized/Overall Review: Reports: No Symptoms Reported EENTM: Reports: No Symptoms Reported Respiratory: Reports: No Symptoms Reported Cardiac: Reports: No Symptoms Reported Abdominal: Reports: No Symptoms Reported Genitourinary Symptoms: Reports: No Symptoms Reported Musculoskeletal Complaints: Reports: No Symptoms Reported Neurological: Reports: No Symptoms Reported Skin: Reports: Other - right foot erythema/ cellulitis - Vitals Vitals: Last Vital Signs Temp 36.9 C 12/22/16 02:39 Pulse 69 12/22/16 02:39 Resp 20 12/22/16 02:39 BP 101/59 12/22/16 02:39 Pulse Ox 94 12/22/16 02:39 - Abnormal Lab Findings Abnormal Lab Findings: Abnormal Lab Results 12/21/16 12/21/16 12/21/16 Range/Units 06:17 06:17 13:10 RBC 3.31 L (4.7-6.0) M/mm3 Hgb 10.5 L (13.5-18.0) gm/dL Hct 31.8 L (42.0-52.0) % MCH 31.7 H (27-31) pg Plt Count 132 L (150-450) K/mm3 MPV 10.8 H (6.0-9.5) fl Lymphocytes % (Manual) 17 L (20-51) % Eosinophils % (Manual) 6 H (0-3) % Lymphocytes # (Manual) 0.8 L (1.5-3.5) k/mm3 Atypic/Reactive Lymphs 6 H (0-2) % Platelet Estimate Decreased L (NORMAL) Sodium 130 L (132-142) mmol/L Chloride 96 L (97-106) mmol/L Random Glucose 147 H 176 H (70-110) mg/dL C-Reactive Prot, Quant 6.9 H 5.9 H (0.0-0.9) mg/dL 12/21/16 Range/Units 13:10 RBC 3.34 L (4.7-6.0) M/mm3 Hgb 10.7 L (13.5-18.0) gm/dL Hct 32.3 L (42.0-52.0) % MCH 32.0 H (27-31) pg Plt Count 137 L (150-450) K/mm3 MPV 10.6 H (6.0-9.5) fl Lymphocytes % (Manual) (20-51) % Eosinophils % (Manual) (0-3) % Lymphocytes # (Manual) (1.5-3.5) k/mm3 Atypic/Reactive Lymphs (0-2) % Platelet Estimate (NORMAL) Sodium (132-142) mmol/L Chloride (97-106) mmol/L Random Glucose (70-110) mg/dL C-Reactive Prot, Quant (0.0-0.9) mg/dL - Exam Constitutional: Present: Alert, Oriented x3, Cooperative, No distress, Obese ENT Exam: Present: moist mucous membranes Neck: Present: full range of motion Respiratory: Present: chest non-tender, normal breath sounds, no respiratory distress, decreased breath sounds Cardiovascular/Chest: Present: normal peripheral pulses, regular rate, rhythm, no chest tenderness, no edema Abdomen: Present: Normal bowel sounds, soft, nontender, nondistended, no rebound tenderness /Rectal: Present: Exam deferred Extremity: Present: normal range of motion, no calf tenderness, swelling - right foot Skin Exam: Present: other - right foot 5th metatarsal cellulitis Neurologic: Present: oriented x 3 Appearance: Present: appropriate appearance Eye contact: Present: cooperative Thoughts: Present: normal thought pattern Assessment/Plan Plan Narrative: Acute Osteomyelitis Seen on MRI: osteomyelitis right 5th metatarsal head and neck Podiatry surgical intervention later today. EKG- NSR CXR noted: mild pulmonry markings. may consider pneumonitis. pt uses albuterol inhaler PRN Encourage use of I/S pt is medically appropriate for planned procedure Diabetic ulcer right foot with new developed ulcer and abscess Pt failed out-pt antbx therapy oral Bactrim BID. Dr Alston had I/D of right foot. MRI right foot, Wound cultures and blood culture pending Initiated IV antbx vanco and zosyn, pharmacy to dose. 10/24 CRP 1.4---->14.4 on this adm---->5.9 gradually improving 10/24 ESR 28---->102 on this adm Monitor CBC and cmp in am Dr Alston following and schedule for surgery. Cellulitis with abscess of right foot Temp 37.7--->37.3---->36.7 resolved WBC_ WNL 12/19/16 S/P incision and drainage of abscess at wound clinic Hyponatremia On adm Na+ 129--->130 gradually improving Gentle hydration IVF monitor CMP in am Diabetic Acc-check AC+HS and low dose SSI may resume home dose of medications when list is provided Consistent carb diet A1c 6.8 Substance abuse smoking cessation Nicotine patch Hypertension- stable Monitor vital signs May resume home dose of medications when no longer NPO Code status: Full VTE ppx: SCd and ambulate Anticipate discharge home 1-2 days Time 20 minutes - Problems/Diagnosis (1) Osteomyelitis of right foot Problem: Acute Qualifiers: Osteomyelitis type: other acute Qualified Code(s): M86.171 - Other acute osteomyelitis, right ankle and foot (2) Diabetic foot ulcer associated with type 2 diabetes mellitus Problem: Acute Qualifiers: Laterality: right Qualified Code(s): E11.621 - Type 2 diabetes mellitus with foot ulcer; L97.519 - Non-pressure chronic ulcer of other part of right foot with unspecified severity (3) Hyponatremia Problem: Acute (4) DM type 2 (diabetes mellitus, type 2) Problem: Chronic (5) Hypertension Problem: Chronic Qualifiers: Hypertension type: essential hypertension Qualified Code(s): I10 - Essential (primary) hypertension
[2016-12-22 05:55] LABS: Hematocrit 32.3 % (42.0-52.0); Hemoglobin 11.1 gm/dL (13.5-18.0); Mean Cell Volume 94.2 fl (78-100); Mean Corpuscular Hemoglobin 32.4 pg (27-31); Mean Corpuscular Hgb Conc 34.4 g/dl (32-36); Mean Platelet Volume 10.6 fl (6.0-9.5); Neutrophil # 3.4 K/mm3 (1.3-6.0); Neutrophil % 66.1 % (42-75.0); Platelet Count 128 K/mm3 (150-450); Red Blood Count 3.43 M/mm3 (4.7-6.0); Red Cell Distribution Width 12.8 % (11.5-14.0); White Blood Count 5.1 K/mm3 (4.0-10.5)
[2016-12-22 06:30] LABS: Anion Gap 13.5 mmol/L (6.8-13.8); BUN/Creatinine Ratio 14.1 (9.0-21.6); Calcium * 8.6 mg/dL (7.9-10.9); Carbon Dioxide 26.6 mmol/L (24-32.6); Chol/HDL Risk Ratio 3.2 mg/dL (3.3-5.0); Estimated Creat Clear 140.9; Potassium 4.1 mmol/L (3.4-4.6)
[2016-12-22] MEDS: INSULIN LISPRO 100 UNITS/ML VIAL SC SCH ×4 (06:32→20:28)
[2016-12-22] MEDS: FAMOTIDINE 20 MG TABLET PO SCH ×2 (08:44→20:30)
[2016-12-22] MEDS: CITALOPRAM HYDROBROMIDE 20 MG TABLET PO SCH (08:44)
[2016-12-22] MEDS: ISOSORBIDE MONONITRATE 30 MG TAB.SR.24H PO SCH (08:45)
[2016-12-22] MEDS: LISINOPRIL 20 MG TABLET PO SCH (08:45)
[2016-12-22] MEDS: GABAPENTIN 600 MG TABLET PO SCH ×2 (08:45→20:29)
[2016-12-22] MEDS: METOPROLOL TARTRATE 25 MG TABLET PO SCH ×2 (08:45→20:29)
[2016-12-22] MEDS: MUPIROCIN 22 APPL TUBE TP SCH ×2 (08:46→20:29)
[2016-12-22] MEDS: DEXTROSE 5%-0.5 NORMAL SALINE 1,000 ML IV PRN ×2 (08:50→14:42)
[2016-12-22] MEDS ORDERED: VANCOMYCIN HCL LEVEL XX ONE (09:30)
[2016-12-22] MEDS: NICOTINE 21 MG PATC TD SCH (11:13)
[2016-12-22] MEDS: VANCOMYCIN HCL 1.5 GM in DEXTROSE 5 % IN WATER 500 ML IV SCH ×2 (11:17)
[2016-12-22] MEDS ORDERED: DEXTROSE 5%-0.5 NORMAL SALINE 1,000 ML IV ONE (13:15)
[2016-12-22] MEDS ORDERED: BUPIVACAINE HCL 50 ML VIAL IJ ONE (13:30)
[2016-12-22] MEDS ORDERED: LIDOCAINE HCL 50 ML VIAL IJ ONE (13:30)
[2016-12-22] MEDS: CLOPIDOGREL BISULFATE 75 MG TABLET PO SCH (14:28)
[2016-12-22] MEDS: ASPIRIN 81 MG TAB.CHEW PO SCH (14:28)
[2016-12-22] MEDS: INSULIN GLARGINE,HUM.REC.ANLOG 100 UNITS/ML VIAL SC SCH ×2 (14:28→20:28)
[2016-12-22] MEDS: SIMVASTATIN 20 MG TABLET PO SCH (20:29)
[2016-12-22] MEDS: VANCOMYCIN HCL 1.75 GM in DEXTROSE 5 % IN WATER 500 ML IV SCH ×2 (21:22)
[2016-12-23] MEDS: INSULIN LISPRO 100 UNITS/ML VIAL SC SCH ×4 (06:40→21:13)
--- NOTE | 2016-12-23 06:52 | PN ---
Subjective - Date and Time Seen Date: 12/23/16 Time: 06:36 Subjective Narrative: Patient seen in bed without discomfort he denies fever or chills overnight and stated he was feeling much better than he did on adm. Objective - Review of Systems Generalized/Overall Review: Reports: No Symptoms Reported EENTM: Reports: No Symptoms Reported Respiratory: Reports: No Symptoms Reported Cardiac: Reports: No Symptoms Reported Abdominal: Reports: No Symptoms Reported Genitourinary Symptoms: Reports: No Symptoms Reported Musculoskeletal Complaints: Reports: No Symptoms Reported Neurological: Reports: No Symptoms Reported Skin: Reports: No Symptoms Reported Endocrine: Reports: No Symptoms Reported - Vitals Vitals: Last Vital Signs Temp 36.8 C 12/23/16 04:06 Pulse 74 12/23/16 04:06 Resp 16 12/23/16 04:06 BP 121/70 12/23/16 04:06 Pulse Ox 96 12/23/16 04:06 - Exam Constitutional: Present: Alert, Oriented x3, Cooperative, Well developed, No distress ENT Exam: Present: moist mucous membranes Neck: Present: full range of motion Respiratory: Present: chest non-tender, lungs clear, normal breath sounds, no respiratory distress Cardiovascular/Chest: Present: normal peripheral pulses, regular rate, rhythm, no chest tenderness, no edema Abdomen: Present: Normal bowel sounds, soft, nontender, nondistended, no rebound tenderness /Rectal: Present: Exam deferred Extremity: Present: normal range of motion, normal capillary refill Skin Exam: Present: warm/dry, other - Right foot in dressing S/P I/D 5th metatarsal head Neurologic: Present: oriented x 3 Appearance: Present: appropriate appearance Eye contact: Present: cooperative Thoughts: Present: normal thought pattern Assessment/Plan Plan Narrative: POD#1 I/D foot removal infected tissue and bone, 5th metatarsal head secondary to Acute Osteomyelitis Seen on MRI: osteomyelitis right 5th metatarsal head and neck CXR noted: mild pulmonry markings. may consider pneumonitis. pt uses albuterol inhaler PRN Encourage use of I/S Pt/Ot evaluation and treatment Continue with IV antbx. Diabetic ulcer right foot with new developed ulcer and abscess Pt failed out-pt antbx therapy oral Bactrim BID. Dr Alston had I/D of right foot. MRI right foot, Wound cultures and blood culture pending Initiated IV antbx vanco and zosyn, pharmacy to dose. 10/24 CRP 1.4---->14.4 on this adm---->5.9 gradually improving 10/24 ESR 28---->102 Monitor CBC and cmp in am Dr Alston following and schedule for surgery. Diabetic Acc-check AC+HS and low dose SSI may resume home dose of medications when list is provided Consistent carb diet A1c 6.8 Substance abuse smoking cessation Nicotine patch Hypertension- stable Monitor vital signs May resume home dose of medications when no longer NPO Cellulitis with abscess of right foot Temp 37.7--->37.3---->36.7 resolved WBC_ WNL 12/19/16 S/P incision and drainage of abscess at wound clinic Hyponatremia- resolved On adm Na+ 129--->130 gradually improving Gentle hydration IVF monitor CMP in am Code status: Full VTE ppx: SCd and ambulate Anticipate discharge home 1-2 days Time 20 minutes - Problems/Diagnosis (1) Osteomyelitis of right foot Problem: Acute Qualifiers: Osteomyelitis type: other acute Qualified Code(s): M86.171 - Other acute osteomyelitis, right ankle and foot (2) Diabetic foot ulcer associated with type 2 diabetes mellitus Problem: Chronic Qualifiers: Laterality: right Qualified Code(s): E11.621 - Type 2 diabetes mellitus with foot ulcer; L97.519 - Non-pressure chronic ulcer of other part of right foot with unspecified severity (3) Hyponatremia Problem: Resolved (4) DM type 2 (diabetes mellitus, type 2) Problem: Chronic (5) Hypertension Problem: Chronic Qualifiers: Hypertension type: essential hypertension Qualified Code(s): I10 - Essential (primary) hypertension
[2016-12-23 06:59] LABS: Hematocrit 34.1 % (42.0-52.0); Hemoglobin 11.3 gm/dL (13.5-18.0); Mean Cell Volume 95.3 fl (78-100); Mean Corpuscular Hemoglobin 31.6 pg (27-31); Mean Corpuscular Hgb Conc 33.1 g/dl (32-36); Mean Platelet Volume 10.4 fl (6.0-9.5); Neutrophil % 64.4 % (42-75.0); Platelet Count 127 K/mm3 (150-450); Red Blood Count 3.58 M/mm3 (4.7-6.0); Red Cell Distribution Width 12.7 % (11.5-14.0); White Blood Count 6.2 K/mm3 (4.0-10.5)
[2016-12-23 07:15] LABS: Anion Gap 11.6 mmol/L (6.8-13.8); BUN/Creatinine Ratio 10.3 (9.0-21.6); CRP 3.7 mg/dL (0.0-0.9); Calcium * 8.8 mg/dL (7.9-10.9); Carbon Dioxide 29.7 mmol/L (24-32.6); Potassium 4.3 mmol/L (3.4-4.6)
[2016-12-23] MEDS: GABAPENTIN 600 MG TABLET PO SCH ×2 (09:34→21:14)
[2016-12-23] MEDS: ISOSORBIDE MONONITRATE 30 MG TAB.SR.24H PO SCH (09:34)
[2016-12-23] MEDS: METOPROLOL TARTRATE 25 MG TABLET PO SCH ×2 (09:34→21:14)
[2016-12-23] MEDS: FAMOTIDINE 20 MG TABLET PO SCH ×2 (09:34→21:14)
[2016-12-23] MEDS: LISINOPRIL 20 MG TABLET PO SCH (09:34)
[2016-12-23] MEDS: CITALOPRAM HYDROBROMIDE 20 MG TABLET PO SCH (09:35)
[2016-12-23] MEDS: MUPIROCIN 22 APPL TUBE TP SCH ×2 (09:35→21:13)
[2016-12-23] MEDS: NICOTINE 21 MG PATC TD SCH (09:36)
[2016-12-23] MEDS: INSULIN GLARGINE,HUM.REC.ANLOG 100 UNITS/ML VIAL SC SCH ×2 (09:39→21:14)
[2016-12-23] MEDS: ASPIRIN 81 MG TAB.CHEW PO SCH (09:45)
[2016-12-23] MEDS: CLOPIDOGREL BISULFATE 75 MG TABLET PO SCH (09:45)
[2016-12-23] MEDS: VANCOMYCIN HCL 1.75 GM in DEXTROSE 5 % IN WATER 500 ML IV SCH ×4 (09:47→21:15)
[2016-12-23] MEDS: SIMVASTATIN 20 MG TABLET PO SCH (21:14)
[2016-12-23] MEDS: ACETAMINOPHEN 500 MG TABLET PO PRN (21:44)
[2016-12-24 05:47] LABS: Hematocrit 33.8 % (42.0-52.0); Hemoglobin 11.1 gm/dL (13.5-18.0); Mean Cell Volume 95.8 fl (78-100); Mean Corpuscular Hemoglobin 31.4 pg (27-31); Mean Corpuscular Hgb Conc 32.8 g/dl (32-36); Mean Platelet Volume 10.4 fl (6.0-9.5); Neutrophil # 3.1 K/mm3 (1.3-6.0); Neutrophil % 59.4 % (42-75.0); Platelet Count 144 K/mm3 (150-450); Red Blood Count 3.53 M/mm3 (4.7-6.0); Red Cell Distribution Width 12.6 % (11.5-14.0); White Blood Count 5.2 K/mm3 (4.0-10.5)
--- NOTE | 2016-12-24 06:40 | PN ---
Subjective - Date and Time Seen Date: 12/24/16 Time: 06:37 Subjective Narrative: patient seen today AOX3 no acute distress, dressing to right foot remain D/I. pt denies fever or chills overnight. Pt stated his daughter will provide transportation [facility] and get wound care with Dr. alston. plan of care discussed with pt he verbalized understanding and agree. Objective - Review of Systems Generalized/Overall Review: Reports: No Symptoms Reported EENTM: Reports: No Symptoms Reported Respiratory: Reports: No Symptoms Reported Cardiac: Reports: No Symptoms Reported Abdominal: Reports: No Symptoms Reported Genitourinary Symptoms: Reports: No Symptoms Reported Musculoskeletal Complaints: Reports: No Symptoms Reported Neurological: Reports: No Symptoms Reported Skin: Reports: No Symptoms Reported Endocrine: Reports: No Symptoms Reported - Vitals Vitals: Last Vital Signs Temp 36.8 C 12/24/16 03:27 Pulse 70 12/24/16 03:27 Resp 18 12/24/16 03:27 BP 101/51 12/24/16 03:27 Pulse Ox 95 12/24/16 03:27 - Abnormal Lab Findings Abnormal Lab Findings: Abnormal Lab Results 12/23/16 12/23/16 12/24/16 Range/Units 06:45 06:45 05:15 RBC 3.58 L 3.53 L (4.7-6.0) M/mm3 Hgb 11.3 L 11.1 L (13.5-18.0) gm/dL Hct 34.1 L 33.8 L (42.0-52.0) % MCH 31.6 H 31.4 H (27-31) pg Plt Count 127 L 144 L (150-450) K/mm3 MPV 10.4 H 10.4 H (6.0-9.5) fl Immature Gran % (Auto) 0.60 H 1.50 H (0.001-0.429) % Immature Gran # (Auto) 0.04 H 0.08 H (0.000-0.0310) K/mm3 Monocytes % 9.7 H 9.5 H (0.0-9) % Lymphocytes # 1.4 L 1.4 L (1.5-3.5) k/mm3 C-Reactive Prot, Quant 3.7 H (0.0-0.9) mg/dL 12/24/16 Range/Units 05:15 RBC (4.7-6.0) M/mm3 Hgb (13.5-18.0) gm/dL Hct (42.0-52.0) % MCH (27-31) pg Plt Count (150-450) K/mm3 MPV (6.0-9.5) fl Immature Gran % (Auto) (0.001-0.429) % Immature Gran # (Auto) (0.000-0.0310) K/mm3 Monocytes % (0.0-9) % Lymphocytes # (1.5-3.5) k/mm3 C-Reactive Prot, Quant 3.7 H (0.0-0.9) mg/dL - Exam Constitutional: Present: Alert, Oriented x3, Cooperative, Well developed, No distress ENT Exam: Present: normal ENT inspection, moist mucous membranes Neck: Present: full range of motion Respiratory: Present: chest non-tender, normal breath sounds, no respiratory distress Cardiovascular/Chest: Present: normal peripheral pulses, regular rate, rhythm, no chest tenderness, no edema Abdomen: Present: Normal bowel sounds, soft, nontender, nondistended, no rebound tenderness /Rectal: Present: Exam deferred Extremity: Present: normal range of motion, non-tender, normal inspection, no pedal edema, no calf tenderness, normal capillary refill Skin Exam: Present: normal color, warm/dry, no cyanosis Lymphatic: Present: no adenopathy Neurologic: Present: oriented x 3 Appearance: Present: appropriate appearance Eye contact: Present: cooperative Assessment/Plan Plan Narrative: POD#2 I/D foot removal infected tissue and bone, 5th metatarsal head secondary to Acute Osteomyelitis Dr Alston following Seen on MRI: osteomyelitis right 5th metatarsal head and neck CXR noted: mild pulmonary markings. may consider pneumonitis. pt uses albuterol inhaler PRN Encourage use of I/S Pt/Ot evaluation and treatment Continue with IV antbx until 12/29/16 Diabetic ulcer right foot with new developed ulcer and abscess Pt failed out-pt antbx therapy oral Bactrim BID. Dr Alston had I/D of right foot. MRI right foot, Wound cultures and blood culture pending Initiated IV antbx vidhyao and jose, pharmacy to dose. 10/24 CRP 1.4---->14.4 on this adm---->5.9--->3.7 gradually improving 10/24 ESR 28---->102 Diabetic Acc-check AC+HS and low dose SSI Resume home medications Consistent carb diet A1c 6.8 Substance abuse- chronic smoking cessation Nicotine patch Hypertension- stable Monitor vital signs May resume home dose of medications when no longer NPO Cellulitis with abscess of right foot- resolving Temp 37.7--->37.3---->36.7 resolved WBC_ WNL 12/19/16 S/P incision and drainage of abscess at wound clinic Hyponatremia- resolved On adm Na+ 129--->130 gradually improving Gentle hydration IVF monitor CMP in am Code status: Full VTE ppx: SCd and ambulate Anticipate discharge home later today when pt daughter pick him up Time 20 minutes - Problems/Diagnosis (1) Osteomyelitis of right foot Problem: Acute Qualifiers: Osteomyelitis type: other acute Qualified Code(s): M86.171 - Other acute osteomyelitis, right ankle and foot (2) Diabetic foot ulcer associated with type 2 diabetes mellitus Problem: Chronic Qualifiers: Laterality: right Qualified Code(s): E11.621 - Type 2 diabetes mellitus with foot ulcer; L97.519 - Non-pressure chronic ulcer of other part of right foot with unspecified severity (3) Hyponatremia Problem: Resolved (4) DM type 2 (diabetes mellitus, type 2) Problem: Chronic (5) Hypertension Problem: Chronic Qualifiers: Hypertension type: essential hypertension Qualified Code(s): I10 - Essential (primary) hypertension
[2016-12-24] MEDS: INSULIN LISPRO 100 UNITS/ML VIAL SC SCH ×4 (06:41→20:53)
[2016-12-24] MEDS: FAMOTIDINE 20 MG TABLET PO SCH ×2 (09:27→20:55)
[2016-12-24] MEDS: GABAPENTIN 600 MG TABLET PO SCH ×2 (09:27→20:54)
[2016-12-24] MEDS: ASPIRIN 81 MG TAB.CHEW PO SCH (09:27)
[2016-12-24] MEDS: MUPIROCIN 22 APPL TUBE TP SCH ×2 (09:29→20:53)
[2016-12-24] MEDS: CLOPIDOGREL BISULFATE 75 MG TABLET PO SCH (09:29)
[2016-12-24] MEDS: CITALOPRAM HYDROBROMIDE 20 MG TABLET PO SCH (09:29)
[2016-12-24] MEDS ORDERED: VANCOMYCIN HCL LEVEL XX ONE (09:30)
[2016-12-24] MEDS: NICOTINE 21 MG PATC TD SCH (09:32)
[2016-12-24] MEDS: ISOSORBIDE MONONITRATE 30 MG TAB.SR.24H PO SCH (09:34)
[2016-12-24] MEDS: INSULIN GLARGINE,HUM.REC.ANLOG 100 UNITS/ML VIAL SC SCH (09:34)
[2016-12-24] MEDS: METOPROLOL TARTRATE 25 MG TABLET PO SCH ×2 (09:34→20:55)
[2016-12-24] MEDS: LISINOPRIL 20 MG TABLET PO SCH (09:35)
[2016-12-24] MEDS: VANCOMYCIN HCL 1.75 GM in DEXTROSE 5 % IN WATER 500 ML IV SCH ×4 (10:45→21:00)
[2016-12-24] MEDS: ENOXAPARIN SODIUM 40 MG/0.4 ML SYRG SC SCH (13:53)
[2016-12-24] MEDS: SIMVASTATIN 20 MG TABLET PO SCH (20:55)
[2016-12-24] MEDS ORDERED: INSULIN GLARGINE,HUM.REC.ANLOG 100 UNITS/ML VIAL SC SCH (21:00)
[2016-12-24] MEDS: ACETAMINOPHEN 500 MG TABLET PO PRN (22:48)
[2016-12-25 05:55] LABS: Hematocrit 32.8 % (42.0-52.0); Hemoglobin 10.9 gm/dL (13.5-18.0); Mean Cell Volume 95.1 fl (78-100); Mean Corpuscular Hemoglobin 31.6 pg (27-31); Mean Corpuscular Hgb Conc 33.2 g/dl (32-36); Neutrophil # 2.8 K/mm3 (1.3-6.0); Neutrophil % 53.7 % (42-75.0); Platelet Count 131 K/mm3 (150-450); Red Blood Count 3.45 M/mm3 (4.7-6.0); Red Cell Distribution Width 12.6 % (11.5-14.0); White Blood Count 5.1 K/mm3 (4.0-10.5)
[2016-12-25 06:06] LABS: Anion Gap 11.4 mmol/L (6.8-13.8); BUN/Creatinine Ratio 14.7 (9.0-21.6); Calcium * 8.9 mg/dL (7.9-10.9); Carbon Dioxide 29.2 mmol/L (24-32.6); Estimated Creat Clear 147.1; Potassium 4.6 mmol/L (3.4-4.6)
[2016-12-25] MEDS: INSULIN LISPRO 100 UNITS/ML VIAL SC SCH ×2 (06:28→11:31)
[2016-12-25] MEDS: MUPIROCIN 22 APPL TUBE TP SCH (09:53)
[2016-12-25] MEDS: GABAPENTIN 600 MG TABLET PO SCH (09:53)
[2016-12-25] MEDS: ISOSORBIDE MONONITRATE 30 MG TAB.SR.24H PO SCH (09:54)
[2016-12-25] MEDS: FAMOTIDINE 20 MG TABLET PO SCH (09:54)
[2016-12-25] MEDS: LISINOPRIL 20 MG TABLET PO SCH (09:54)
[2016-12-25] MEDS: ASPIRIN 81 MG TAB.CHEW PO SCH (09:54)
[2016-12-25] MEDS: CLOPIDOGREL BISULFATE 75 MG TABLET PO SCH (09:54)
[2016-12-25] MEDS: METOPROLOL TARTRATE 25 MG TABLET PO SCH (09:54)
[2016-12-25] MEDS: CITALOPRAM HYDROBROMIDE 20 MG TABLET PO SCH (09:55)
[2016-12-25] MEDS: VANCOMYCIN HCL 1.75 GM in DEXTROSE 5 % IN WATER 500 ML IV SCH ×2 (10:00)
[2016-12-25] MEDS: NICOTINE 21 MG PATC TD SCH (10:01)
[2016-12-25] MEDS: INSULIN GLARGINE,HUM.REC.ANLOG 100 UNITS/ML VIAL SC SCH (10:03)
--- NOTE | 2016-12-25 10:14 | DS ---
(1) Osteomyelitis of right foot Problem: Acute Qualifiers: Osteomyelitis type: other acute Qualified Code(s): M86.171 - Other acute osteomyelitis, right ankle and foot (2) Diabetic foot ulcer associated with type 2 diabetes mellitus Problem: Chronic Qualifiers: Laterality: right Qualified Code(s): E11.621 - Type 2 diabetes mellitus with foot ulcer; L97.519 - Non-pressure chronic ulcer of other part of right foot with unspecified severity Description of Stay: ADMISSION DATE: 12.19.2016 DISCHARGE DATE: 12.25.2016 ADMISSION HPI: 56 years old male adm to the hospital from the ER with reports of right foot diabetic ulcer, cellulitis and formation of new ulceration to right foot. Pt stated he was seen by Dr Alston a few weeks ago and was taking Bactrim BID and has not missed any dose. Despite his compliance he notice new ulcer forming adjacent to existing ulcer on right foot. Pt stated he was seen at wound clinic for new ulcers and pain a few days prior that self resolved. 12/19/16 I/D of ulcers and specimen was collected and sent to lab. Due to pt failure on out-pt therapy he was sent to the ER for IV antbx in-pt. Vanco and zosyn was initiated in ER, MRI right foot pending, pt denies fever chills, palpitation, drainage of wounds prior to adm. PMH significant for diabetes, hypertension, smoker and [place]. Plan of care discussed with pt he verbalized understandings and agree. HOSPITAL COURSE: Patient admitted for IV antibiotics after failing outpatient therapy with oral antibiotics. MRI completed during admission which revealed definite osteomyelitis of the 5th metatarsal. Patient underwent I&D of the right foot with removal of infected tissue and bone by Dr. Alston on 12.22.2016. Following surgery, Dr. Alston wanted the patient to continue to receive IV antibiotics for an additional 1 week. The patient determined that he would be able to go to the [facility] twice daily for outpatient IV antibiotics since he only lives 1.5 blocks away from that hospital. The patient was discharged home in stable condition. FOLLOW-UP APPOINTMENTS: PCP within [address] Alston/wound center NEW OR CHANGED MEDICATIONS: IV Vancomycin Q12H. Patient will receive 4 additional days (8 doses) of IV Vanco at the hospital in [place]. DISCONTINUED MEDICATIONS: None Procedures Performed: see notes below List Procedures: I&D right foot with removal of infected tissue and bone by Dr. Cari Alston on 12.22.2016 Discharge Disposition: Home self care Disposition: Home self-care Condition: Stable Discharge Activity: Other - Activity restrictions per Dr. Alston Discharge Diet: Consistent carbs Additional Patient Instructions (free text): Please call Dr. Alston to determine activity restrictions as well as to get wound care/dressing orders. Please also find out when she would like to see him in clinic and schedule a follow-up appointment with her. Patient should follow-up with PCP within 1 week. IV Vancomycin Q12H. Patient will receive 4 additional days (8 doses) of IV Vanco at the hospital in [place]. Prescriptions (Any new or edited meds): Mupirocin [Bactroban] 1 appl TP BID #1 tube Vancomycin HCl [Vancomycin] 1.75 gm IV Q12H #8 vial Complete Home Medications List: Complete Home Medication List: Citalopram Hydrobromide [Celexa] 20 mg PO DAILY 10/13/16 Clopidogrel Bisulfate [Plavix] 75 mg PO DAILY 10/13/16 Cyanocobalamin [Vitamin B-12] 1,000 mcg IM Q30D 10/13/16 Gabapentin 600 mg PO BID 10/13/16 Glimepiride [Amaryl] 2 mg PO DAILY 10/13/16 Insulin Glargine,Hum.rec.anlog [Lantus] 30 units SC QA 10/13/16 Insulin Glargine,Hum.rec.anlog [Lantus] 60 units SC 10/13/16 Ipratropium/Albuterol Sulfate [Combivent Respimat Inhal [place]] 1 puff IH QID 03/24 Isosorbide Mononitrate [Imdur] 30 mg PO DAILY 10/13/16 Lisinopril [Zestril] 20 mg PO DAILY 10/13/16 Metformin HCl [Metformin HCl ER] 1,000 mg PO BID 10/13/16 Metoprolol Tartrate [Lopressor] 25 mg PO BID 10/13/16 Nabumetone [Relafen] 500 mg PO BID 10/13/16 Ranitidine HCl [Zantac] 150 mg PO BID 10/13/16 Simvastatin 20 mg PO HS 10/13/16 Acetaminophen [Tylenol] 500 mg PO Q6H PRN #0 tablet 12/25/16 Mupirocin [Bactroban] 1 appl TP BID #1 tube 12/25/16 Vancomycin HCl [Vancomycin] 1.75 gm IV Q12H #8 vial 12/25/16
--- NOTE | 2016-12-25 11:28 | PN ---
Subjective - Date and Time Seen Date: 12/25/16 Time: 11:27 Subjective Narrative: Pt seen at bedside resting. Denies any N/V/F/C. Denies any pain in his right foot. Pt is POD #3 s/p I&D right foot with removal of infected tissue and bone. Is ready to go home today. Will receive IV ABX as out patient. Objective - Review of Systems Neurological: Reports: Numbness Skin: Reports: Other - Ulcer right foot Misc: All systems neg except as marked - Vitals Vitals: Last Vital Signs Temp 36.6 C 12/25/16 10:44 Pulse 65 12/25/16 10:44 Resp 16 12/25/16 10:44 BP 108/61 12/25/16 10:44 Pulse Ox 98 12/25/16 10:44 - Abnormal Lab Findings Abnormal Lab Findings: Abnormal Lab Results 12/25/16 Range/Units 05:30 RBC 3.45 L (4.7-6.0) M/mm3 Hgb 10.9 L (13.5-18.0) gm/dL Hct 32.8 L (42.0-52.0) % MCH 31.6 H (27-31) pg Plt Count 131 L (150-450) K/mm3 MPV 11.0 H (6.0-9.5) fl Immature Gran % (Auto) 1.40 H (0.001-0.429) % Immature Gran # (Auto) 0.07 H (0.000-0.0310) K/mm3 Monocytes % 10.0 H (0.0-9) % Eosinophils % 3.1 H (0.0-3.0) % - Exam Constitutional: Present: Alert, Oriented x3, No distress Skin Exam: Present: other - Ulceration remains to lateral right foot following surgery, however appears improved with increase in granulation tissue. Still with mild surrounding erythema. Minimal serosanguinous drainage, no malodor. No exposed tendon or bone at this time. Incision extending to lateral 5th toe well approximated with suture intact. Capuslar structures over 5th MtPJ well approximated with sutures intact. Granulation tissue beginning to cover sutures. Neurologic: Present: sensory deficit Eye contact: Present: cooperative Assessment/Plan - Problems/Diagnosis (1) Cellulitis and abscess of foot Problem: Acute Narrative: Improved with current care. OK for d/c home. Continue IV ABX as prescribed as out patient. (2) Osteomyelitis of right foot Problem: Acute Qualifiers: Osteomyelitis type: other acute Qualified Code(s): M86.171 - Other acute osteomyelitis, right ankle and foot Narrative: Awaiting pathology results from removal of infected bone. OK for d/c home with IV ABX therapy. Will have dressing to right foot changed this in [place] ([place]) when he presents for ABX therapy. Dressing to consist of adaptic , 4x4 gauze, ABD pad, ruth, and SUDHAKAR bandage. New dressing applied to right foot today. (3) Diabetic ulcer of right foot due to type 2 diabetes mellitus Problem: Chronic Narrative: Dressing changes as ordered. F/u in wound center next Sunday.
[2016-12-25] MEDS: ENOXAPARIN SODIUM 40 MG/0.4 ML SYRG SC SCH ×3 (13:12→15:17)
[2016-12-25 14:42] VITALS: BP 116/65
== END 2016-12-25 15:21 | disposition swing bed (61) | DRG 629 ==
LOC: ER 18:34 → MS 21:46 → UNDOADMIN 21:46 → MS 21:50
PROVIDERS: ADMIT Internal Medicine; ATTEND Internal Medicine
PROC: 0QBN0ZZ Excision of Right Metatarsal, Open Approach (ICD-10-PCS; principal; 2016-12-22 13:15)
DX: E11.621 Type 2 diabetes mellitus with foot ulcer (principal); L03.115 Cellulitis of right lower limb; E87.1 Hypo-osmolality and hyponatremia; L97.519 Non-pressure chronic ulcer of other part of right foot with unspecified severity; E11.40 Type 2 diabetes mellitus with diabetic neuropathy, unspecified; I10 Essential (primary) hypertension; E78.5 Hyperlipidemia, unspecified; F17.210 Nicotine dependence, cigarettes, uncomplicated; Z79.4 Long term (current) use of insulin

== ENCOUNTER 2016-12-25 15:21 | Inpatient (IN) | payer OTHER ==
--- OUTSIDE RECORDS SUMMARY | 2016-12-25 15:30 | XMS REPORT | Continuity of Care Document ---
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
[2016-12-25] MEDS ORDERED: ACETAMINOPHEN 500 MG TABLET PO PRN (16:22)
[2016-12-25] MEDS ORDERED: VANCOMYCIN HCL 1 GM VIAL IV SCH (16:30)
[2016-12-25] MEDS ORDERED: ALBUTEROL SULFATE/IPRATROPIUM 3 ML NEBU IH PRN (17:47)
[2016-12-25] MEDS: INSULIN LISPRO 100 UNITS/ML VIAL SC SCH ×2 (17:58→20:56)
--- NOTE | 2016-12-25 18:54 | HP ---
Chief Complaint - Chief Complaint Date of Service: 12/25/16 Time of Service: 18:12 Chief Complaint: Osteomyelitis History of Present Illness: Chay is a 56 yo male with Insulin dependent diabetes that was recently admitted for failed outpatient treatment of cellulitis and diabetic foot ulcer that MRI showed to have osteomyelitis. He had surgery by Dr. Alston to remove the infected tissue and he was to be treated with an additional week of IV vancomycin. He was discharged from [facility] today and was set up at [place] to get IV antibiotics through their annex (1.75 gram q12hr x 8 more doses). However upon going to the [place] [facility] he was informed that they could not do that. He lives in [place] and it is too far to drive to [facility] twice a day for his vancomycin. He will be admitted to [facility] at [facility] for IV antibiotics. - Patient's Past Medical History Patient History - Medical: Diabetes Type 2, GERD, Obesity, Osteoarthritis Patient History - Cardiac/Respiratory: Hypertension, Hyperlipidemia, Peripheral Vascular Disease Patient History - Cancer: No Hx of Cancer, Skin Patient History - Surgical Procedures: Colonoscopy Patient History - Other: None - Family History Mother Family History - Medical: , Diabetes Type 2 Family History - Cardiac/Respiratory: CHF, Hypertension Father Family History - Medical: Family History - Cardiac/Respiratory: Hypertension - Social History Living Situations: home Abuse History: No History of abuse Psych History: No pertinent hx Alcohol Use: none Drug Use: none - Immunizations Hx Pneumococcal Vaccination: Yes History of Influenza Vaccine: Yes Review Of Systems (GEN) - Review of Systems Generalized/Overall Review: Present: No Symptoms Reported EENTM: Present: No Symptoms Reported Respiratory: Present: No Symptoms Reported Cardiac: Present: No Symptoms Reported Abdominal: Present: No Symptoms Reported Genitourinary: Present: No Symptoms Reported Musculoskeletal: Present: No Symptoms Reported Neurological: Present: No Symptoms Reported Skin: Present: No Symptoms Reported Immunizations: IMMUNIZATION HX History of Influenza Vaccine Yes Hx Pneumococcal Vaccination Yes Allergies/Adverse Reactions: Allergies Allergy/AdvReac Type Severity Reaction Status Date / Time cefazolin Allergy Intermediate Vomiting Verified 12/19/16 23:45 Home Medications: HOME MEDICATIONS Citalopram Hydrobromide [Celexa] 20 mg PO DAILY 10/13/16 [Last Taken 10/12/16] Clopidogrel Bisulfate [Plavix] 75 mg PO DAILY 10/13/16 [Last Taken 10/13/16] Cyanocobalamin [Vitamin B-12] 1,000 mcg IM Q30D 10/13/16 [Last Taken Unknown] Gabapentin 600 mg PO BID 10/13/16 [Last Taken 10/12/16] Glimepiride [Amaryl] 2 mg PO DAILY 10/13/16 [Last Taken 10/12/16] Insulin Glargine,Hum.rec.anlog [Lantus] 30 units SC QAM 10/13/16 [Last Taken 03/24] Insulin Glargine,Hum.rec.anlog [Lantus] 60 units SC HS 10/13/16 [Last Taken 02/21] Ipratropium/Albuterol Sulfate [Combivent Respimat Inhal [place]] 1 puff IH QID 03/24 [Last Taken 10/12/16] Isosorbide Mononitrate [Imdur] 30 mg PO DAILY 10/13/16 [Last Taken 10/12/16] Lisinopril [Zestril] 20 mg PO DAILY 10/13/16 [Last Taken 10/13/16] Metformin HCl [Metformin HCl ER] 1,000 mg PO BID 10/13/16 [Last Taken 10/13/16] Metoprolol Tartrate [Lopressor] 25 mg PO BID 10/13/16 [Last Taken 10/13/16] Nabumetone [Relafen] 500 mg PO BID 10/13/16 [Last Taken 10/13/16] Ranitidine HCl [Zantac] 150 mg PO BID 10/13/16 [Last Taken 10/13/16] Simvastatin 20 mg PO HS 10/13/16 [Last Taken 10/12/16] Acetaminophen [Tylenol] 500 mg PO Q6H PRN #0 tablet 12/25/16 [Last Taken Unknown ] Mupirocin [Bactroban] 1 appl TP BID #1 tube 12/25/16 [Last Taken Unknown] Vancomycin HCl [Vancomycin] 1.75 gm IV Q12H #8 vial 12/25/16 [Last Taken Unknown ] Exam - Exam Vital Signs: Vital Signs - Last Taken Temp 36.6 C 12/25/16 14:42 Pulse Resp BP 108/61 12/25/16 14:42 Pulse Ox Constitutional: Present: Alert, Oriented x3, Cooperative ENT Exam: Present: hearing grossly normal Eye Exam: bilateral eye: normal inspection Respiratory: Present: lungs clear, normal breath sounds Cardiovascular/Chest: Present: regular rate, rhythm, no murmur Abdomen: Present: Normal bowel sounds, soft, nontender, nondistended Skin Exam: Present: other - wound care to right foot Appearance: Present: appropriate appearance, appropriate insight Eye contact: Present: cooperative, good eye contact, normal speech Assessment/Plan - Assessment/Plan (1) Osteomyelitis of right foot Assessment: Chay is a 56 yo male with surgically removed osteomyelitis of right foot. He was to get 4 additional days of IV antiobiotics after discharge today but that was not possible at [facility] as previously reported. He will be admitted to skilled care at [facility] for IV vancomycin x 8 more doses. Problem: Acute Qualifiers: (2) DM type 2 (diabetes mellitus, type 2) Problem: Chronic (3) Diabetic ulcer of right foot due to type 2 diabetes mellitus Problem: Chronic
[2016-12-25] MEDS ORDERED: ALBUTEROL SULFATE/IPRATROPIUM 3 ML NEBU IH SCH (19:00)
[2016-12-25] MEDS: INSULIN GLARGINE,HUM.REC.ANLOG 100 UNITS/ML VIAL SC SCH (20:58)
[2016-12-25] MEDS ORDERED: MUPIROCIN 22 APPL TUBE TP SCH (21:00)
[2016-12-25] MEDS ORDERED: NABUMETONE 500 MG TABLET PO SCH (21:00)
[2016-12-25] MEDS ORDERED: NON-FORMULARY 1 DOSE DOSE (Metformin Hcl [Metformin Hcl Er] 1,000 MG) PO SCH (21:00)
[2016-12-25] MEDS: SIMVASTATIN 20 MG TABLET PO SCH (21:03)
[2016-12-25] MEDS: FAMOTIDINE 20 MG TABLET PO SCH (21:03)
[2016-12-25] MEDS: METOPROLOL TARTRATE 25 MG TABLET PO SCH (21:03)
[2016-12-25] MEDS: GABAPENTIN 600 MG TABLET PO SCH (21:03)
[2016-12-25] MEDS: VANCOMYCIN HCL 1.75 GM in DEXTROSE 5 % IN WATER 500 ML IV SCH ×2 (22:14)
[2016-12-26] MEDS ORDERED: GLIMEPIRIDE 2 MG TABLET PO SCH (07:00)
[2016-12-26] MEDS: INSULIN LISPRO 100 UNITS/ML VIAL SC SCH ×4 (07:05→22:08)
[2016-12-26] MEDS: CLOPIDOGREL BISULFATE 75 MG TABLET PO SCH (09:06)
[2016-12-26] MEDS: ASPIRIN 81 MG TAB.CHEW PO SCH (09:06)
[2016-12-26] MEDS: LISINOPRIL 20 MG TABLET PO SCH (09:06)
[2016-12-26] MEDS: CITALOPRAM HYDROBROMIDE 20 MG TABLET PO SCH (09:06)
[2016-12-26] MEDS: GABAPENTIN 600 MG TABLET PO SCH ×2 (09:06→20:39)
[2016-12-26] MEDS: METOPROLOL TARTRATE 25 MG TABLET PO SCH ×2 (09:06→20:41)
[2016-12-26] MEDS: ISOSORBIDE MONONITRATE 30 MG TAB.SR.24H PO SCH (09:06)
[2016-12-26] MEDS: NICOTINE 21 MG PATC TD SCH (09:07)
[2016-12-26] MEDS: FAMOTIDINE 20 MG TABLET PO SCH ×2 (09:08→20:40)
[2016-12-26] MEDS: INSULIN GLARGINE,HUM.REC.ANLOG 100 UNITS/ML VIAL SC SCH ×2 (09:08→20:47)
[2016-12-26] MEDS: VANCOMYCIN HCL 1.75 GM in DEXTROSE 5 % IN WATER 500 ML IV SCH ×4 (09:21→22:21)
[2016-12-26] MEDS: ENOXAPARIN SODIUM 40 MG/0.4 ML SYRG SC SCH (12:43)
[2016-12-26] MEDS: SIMVASTATIN 20 MG TABLET PO SCH (20:40)
[2016-12-27] MEDS: INSULIN LISPRO 100 UNITS/ML VIAL SC SCH ×4 (07:17→20:32)
[2016-12-27] MEDS: CLOPIDOGREL BISULFATE 75 MG TABLET PO SCH (08:49)
[2016-12-27] MEDS: LISINOPRIL 20 MG TABLET PO SCH (08:49)
[2016-12-27] MEDS: CITALOPRAM HYDROBROMIDE 20 MG TABLET PO SCH (08:50)
[2016-12-27] MEDS: METOPROLOL TARTRATE 25 MG TABLET PO SCH ×2 (08:50→20:41)
[2016-12-27] MEDS: FAMOTIDINE 20 MG TABLET PO SCH ×2 (08:50→20:40)
[2016-12-27] MEDS: ISOSORBIDE MONONITRATE 30 MG TAB.SR.24H PO SCH (08:50)
[2016-12-27] MEDS: GABAPENTIN 600 MG TABLET PO SCH ×2 (08:50→20:41)
[2016-12-27] MEDS: INSULIN GLARGINE,HUM.REC.ANLOG 100 UNITS/ML VIAL SC SCH ×2 (08:51→20:34)
[2016-12-27] MEDS: ASPIRIN 81 MG TAB.CHEW PO SCH (08:54)
[2016-12-27] MEDS ORDERED: VANCOMYCIN HCL LEVEL XX ONE (09:30)
[2016-12-27] MEDS: NICOTINE 21 MG PATC TD SCH (11:08)
[2016-12-27] MEDS: VANCOMYCIN HCL 1.75 GM in DEXTROSE 5 % IN WATER 500 ML IV SCH ×4 (11:08→22:15)
[2016-12-27] MEDS: ENOXAPARIN SODIUM 40 MG/0.4 ML SYRG SC SCH (13:19)
[2016-12-27] MEDS: SIMVASTATIN 20 MG TABLET PO SCH (20:41)
[2016-12-28] MEDS: INSULIN LISPRO 100 UNITS/ML VIAL SC SCH ×4 (07:48→20:31)
[2016-12-28] MEDS: ASPIRIN 81 MG TAB.CHEW PO SCH (08:53)
[2016-12-28] MEDS: METOPROLOL TARTRATE 25 MG TABLET PO SCH ×2 (08:54→20:33)
[2016-12-28] MEDS: CLOPIDOGREL BISULFATE 75 MG TABLET PO SCH (08:54)
[2016-12-28] MEDS: CITALOPRAM HYDROBROMIDE 20 MG TABLET PO SCH (08:54)
[2016-12-28] MEDS: FAMOTIDINE 20 MG TABLET PO SCH ×2 (08:55→20:33)
[2016-12-28] MEDS: LISINOPRIL 20 MG TABLET PO SCH (08:55)
[2016-12-28] MEDS: GABAPENTIN 600 MG TABLET PO SCH ×2 (08:55→20:33)
[2016-12-28] MEDS: ISOSORBIDE MONONITRATE 30 MG TAB.SR.24H PO SCH (08:55)
[2016-12-28] MEDS: NICOTINE 21 MG PATC TD SCH (09:01)
[2016-12-28] MEDS: INSULIN GLARGINE,HUM.REC.ANLOG 100 UNITS/ML VIAL SC SCH ×2 (09:11→20:32)
[2016-12-28] MEDS: VANCOMYCIN HCL 1.75 GM in DEXTROSE 5 % IN WATER 500 ML IV SCH ×4 (10:38→22:37)
[2016-12-28] MEDS: ENOXAPARIN SODIUM 40 MG/0.4 ML SYRG SC SCH (13:39)
--- NOTE | 2016-12-28 16:33 | CONS ---
- Reason for consultation (1) Osteomyelitis of right foot Date of Service: 12/28/16 (2) Diabetic ulcer of right foot due to type 2 diabetes mellitus Date of Service: 12/28/16 HPI - General Date of Service: 12/28/16 Narrative: Pt evaluated at bedside resting. Denies any N/V/F/C. Denies pain to right foot. Pt is admitted to skilled care for IV ABX therapy. I was consulted for dressing change. - History of Present Illness Allergies/Adverse Reactions: Allergies cefazolin Allergy (Intermediate, Verified 12/19/16 23:45) Vomiting Home Medications: Home Medications Medication Instructions Recorded Last Taken Citalopram Hydrobromide [Celexa] 20 mg PO DAILY 10/13/16 10/12/16 Clopidogrel Bisulfate [Plavix] 75 mg PO DAILY 10/13/16 10/13/16 Cyanocobalamin [Vitamin B-12] 1,000 mcg IM Q30D 10/13/16 Unknown Gabapentin 600 mg PO BID 10/13/16 10/12/16 Glimepiride [Amaryl] 2 mg PO DAILY 10/13/16 10/12/16 Insulin Glargine,Hum.rec.anlog 30 units SC QA 10/13/16 10/13/16 [Lantus] Insulin Glargine,Hum.rec.anlog 60 units SC 10/13/16 10/12/16 [Lantus] Ipratropium/Albuterol Sulfate 1 puff IH QID 10/13/16 10/12/16 [Combivent Respimat Inhal [place]] Isosorbide Mononitrate [Imdur] 30 mg PO DAILY 10/13/16 10/12/16 Lisinopril [Zestril] 20 mg PO DAILY 10/13/16 10/13/16 Metformin HCl [Metformin HCl ER] 1,000 mg PO BID 10/13/16 10/13/16 Metoprolol Tartrate [Lopressor] 25 mg PO BID 10/13/16 10/13/16 Nabumetone [Relafen] 500 mg PO BID 10/13/16 10/13/16 Ranitidine HCl [Zantac] 150 mg PO BID 10/13/16 10/13/16 Simvastatin 20 mg PO HS 10/13/16 10/12/16 - Patient's Past Medical History Patient History - Medical: Diabetes Type 2, GERD, Obesity, Osteoarthritis Patient History - Cardiac/Respiratory: Hypertension, Hyperlipidemia, Peripheral Vascular Disease Patient History - Surgical Procedures: Colonoscopy Patient History - Other: None - Family History Mother Family History - Medical: , Diabetes Type 2 Family History - Cardiac/Respiratory: CHF, Hypertension Father Family History - Medical: Family History - Cardiac/Respiratory: Hypertension - Social History Living Situations: home Abuse History: No History of abuse Psych History: No pertinent hx Alcohol Use: none Drug Use: none - Immunizations Hx Pneumococcal Vaccination: Yes History of Influenza Vaccine: Yes Medications - Medications Current Medications: Current Medications Aspirin (Aspirin Chewable) 81 mg PO DAILY [facility] Stop: 01/25/17 09:01 Last Admin: 12/28/16 08:53 Dose: 81 mg Citalopram Hydrobromide (Celexa) 20 mg PO DAILY [facility] Stop: 01/25/17 09:01 Last Admin: 12/28/16 08:54 Dose: 20 mg Clopidogrel Bisulfate (Plavix) 75 mg PO DAILY [facility] Stop: 01/25/17 09:01 Last Admin: 12/28/16 08:54 Dose: 75 mg Enoxaparin Sodium (Lovenox) 40 mg SC Q24H [facility] Stop: 01/25/17 13:16 Last Admin: 12/28/16 13:39 Dose: 40 mg Famotidine (Pepcid) 20 mg PO BID [facility] Stop: 01/24/17 21:01 Last Admin: 12/28/16 08:55 Dose: 20 mg Gabapentin (Neurontin) 600 mg PO BID [facility] Stop: 01/24/17 21:01 Last Admin: 12/28/16 08:55 Dose: 600 mg Vancomycin HCl 1.75 gm/ (Dextrose/Water) 500 mls @ 166.667 mls/hr IV Q12H [facility] PRN Reason: Protocol Stop: 01/24/17 22:01 Last Admin: 12/28/16 10:38 Dose: 167 mls/hr Insulin Glargine (Lantus) 30 units SC QAM [facility] Stop: 01/25/17 09:01 Last Admin: 12/28/16 09:11 Dose: 30 units Insulin Glargine (Lantus) 30 units SC HS [facility] Stop: 01/24/17 21:01 Last Admin: 12/27/16 20:34 Dose: 30 units Insulin Human Lispro (Humalog) 0 - 12 units SC ACHSINS [facility] PRN Reason: Protocol Stop: 01/24/17 17:31 Last Admin: 12/28/16 12:47 Dose: 3 units Isosorbide Mononitrate (Imdur) 30 mg PO DAILY [facility] Stop: 01/25/17 09:01 Last Admin: 12/28/16 08:55 Dose: 30 mg Lisinopril (Zestril) 20 mg PO DAILY [facility] Stop: 01/25/17 09:01 Last Admin: 12/28/16 08:55 Dose: 20 mg Metoprolol Tartrate (Lopressor) 25 mg PO BID [facility] Stop: 01/24/17 21:01 Last Admin: 12/28/16 08:54 Dose: 25 mg Nicotine (Nicoderm) 21 mg TD Q24H [facility] Stop: 01/25/17 10:01 Last Admin: 12/28/16 09:01 Dose: 21 mg Simvastatin (Zocor) 20 mg PO HS [facility] Stop: 01/24/17 21:01 Last Admin: 12/27/16 20:41 Dose: 20 mg Review of Systems - Review of Systems Neurological: Present: Numbness Skin: Present: Other - Ulceration right foot Physical Examination - Exam Vital Signs: Vital Signs - Last Taken Temp 36.8 C 12/28/16 13:35 Pulse 57 L 12/28/16 13:35 Resp 16 12/28/16 13:35 BP 98/54 12/28/16 13:35 Pulse Ox 98 12/28/16 13:35 O2 Oxygen Delivery Method Room Air Peripheral Pulses: dorsalis-pedis (R): 2+ Skin Exam: Present: other - Ulceration remains to lateral right foot with increase in granulation tissue since surgical debridement. Size remains unchanged. Minimal serosanguinous drainage, no malodor. Surrounding tissue pink , intact. No exposed tendon or bone. Neurologic: Present: sensory deficit - Assessments/Findings (1) Osteomyelitis of right foot Diagnosis(s): Continue IV ABX as ordered. OK for d/c home tomorrow. Will plan f/u in my office on 01/01/2017. Problem: Acute Qualifiers: (2) Diabetic ulcer of right foot due to type 2 diabetes mellitus Diagnosis(s): New dressing applied to right foot, consisting of adaptic, 4x4 gauze, ABD pad, ruth, and SUDHAKAR bandage. Dressing to stay CDI. May WBAT in surgical shoe. Problem: Chronic
[2016-12-28] MEDS: SIMVASTATIN 20 MG TABLET PO SCH (20:33)
[2016-12-29 07:07] VITALS: BP 118/64
[2016-12-29] MEDS: INSULIN LISPRO 100 UNITS/ML VIAL SC SCH (07:26)
--- NOTE | 2017-01-23 16:08 | DS ---
(1) Osteomyelitis of right foot Diagnosis(s): Chay is a 56 yo male that was admitted to skilled care for IV vancomycin for treatment of osteomyelitis of his right foot. He had been treated in acute bed and discharged with plans to get IV antibiotics through [facility]. However when he arrived it was discovered that his insurance would not cover his IV infusions and he returned to [facility]. He was admitted to skilled care and continued on Vancomycin IV bid. He was to get 8 more doses of antibiotics. Prior to receiving his last dose of antibiotics he had to leave due to family responsibilities and left AMA due to not completing the recommended treatment course. During hospital course he did well, there was no evidence of worsening infection. Problem: Acute Qualifiers: (2) DM type 2 (diabetes mellitus, type 2) Problem: Chronic (3) Diabetic ulcer of right foot due to type 2 diabetes mellitus Problem: Chronic Procedures Performed: none Discharge Disposition: AMA Disposition: Home self-care Condition: Good Discharge Activity: Activity as tolerated Discharge Diet: Consistent carbs Complete Home Medications List: Complete Home Medication List: Citalopram Hydrobromide [Celexa] 20 mg PO DAILY 10/13/16 Clopidogrel Bisulfate [Plavix] 75 mg PO DAILY 10/13/16 Cyanocobalamin [Vitamin B-12] 1,000 mcg IM Q30D 10/13/16 Gabapentin 600 mg PO BID 10/13/16 Glimepiride [Amaryl] 2 mg PO DAILY 10/13/16 Insulin Glargine,Hum.rec.anlog [Lantus] 30 units SC QAM 10/13/16 Insulin Glargine,Hum.rec.anlog [Lantus] 60 units SC 10/13/16 Ipratropium/Albuterol Sulfate [Combivent Respimat Inhal [place]] 1 puff IH QID 03/24 Isosorbide Mononitrate [Imdur] 30 mg PO DAILY 10/13/16 Lisinopril [Zestril] 20 mg PO DAILY 10/13/16 Metoprolol Tartrate [Lopressor] 25 mg PO BID 10/13/16 Nabumetone [Relafen] 500 mg PO BID 10/13/16 Ranitidine HCl [Zantac] 150 mg PO BID 10/13/16 Simvastatin 20 mg PO HS 10/13/16 metFORMIN HCL [Metformin HCl ER] 1,000 mg PO BID 10/13/16 Acetaminophen [Tylenol] 500 mg PO Q6H PRN #0 tablet 12/25/16 Mupirocin [Bactroban] 1 appl TP BID #1 tube 12/25/16 Vancomycin HCl [Vancomycin] 1.75 gm IV Q12H #8 vial 12/25/16
== END 2016-12-29 09:05 | disposition home or self-care (01) | DRG 540 ==
LOC: MS 15:21
PROVIDERS: ADMIT Family Medicine; ATTEND Family Medicine
DX: M86.171 Other acute osteomyelitis, right ankle and foot (principal); L03.115 Cellulitis of right lower limb; E11.621 Type 2 diabetes mellitus with foot ulcer; L97.519 Non-pressure chronic ulcer of other part of right foot with unspecified severity; Z79.2 Long term (current) use of antibiotics; I10 Essential (primary) hypertension; E78.5 Hyperlipidemia, unspecified; Z85.828 Personal history of other malignant neoplasm of skin; Z79.4 Long term (current) use of insulin

== ENCOUNTER 2017-05-08 14:51 | Inpatient (IN) | payer OTHER ==
--- NOTE | 2017-05-08 15:23 | ERNOTE ---
Lower Extremity HPI - General Lower Extremities Pain: foot: right Time Seen by Provider: 05/08/17 15:03 Source: patient Exam Limitations: no limitations - Immun/Allergies/Home Medications Immunizations: IMMUNIZATION HX Immunizations Up to Date Yes History of Influenza Vaccine Yes Hx Pneumococcal Vaccination Yes Allergies/Adverse Reactions: Allergies Allergy/AdvReac Type Severity Reaction Status Date / Time cefazolin Allergy Intermediate Vomiting Verified 05/08/17 15:01 cephalexin AdvReac Vomiting Verified 05/08/17 17:28 Home Medications: HOME MEDICATIONS Citalopram Hydrobromide [Celexa] 20 mg PO DAILY 10/13/16 [Last Taken 10/12/16] Clopidogrel Bisulfate [Plavix] 75 mg PO DAILY 10/13/16 [Last Taken 10/13/16] Cyanocobalamin [Vitamin B-12] 1,000 mcg IM Q30D 10/13/16 [Last Taken Unknown] Gabapentin 600 mg PO BID 10/13/16 [Last Taken 10/12/16] Glimepiride [Amaryl] 2 mg PO DAILY 10/13/16 [Last Taken 10/12/16] Insulin Glargine,Hum.rec.anlog [Lantus] 30 units SC QA 10/13/16 [Last Taken 03/24] Insulin Glargine,Hum.rec.anlog [Lantus] 60 units SC 10/13/16 [Last Taken 02/21] Ipratropium/Albuterol Sulfate [Combivent Respimat Inhal [place]] 1 puff IH QID 03/24 [Last Taken 10/12/16] Isosorbide Mononitrate [Imdur] 30 mg PO DAILY 10/13/16 [Last Taken 10/12/16] Lisinopril [Zestril] 20 mg PO DAILY 10/13/16 [Last Taken 10/13/16] Metoprolol Tartrate [Lopressor] 25 mg PO BID 10/13/16 [Last Taken 10/13/16] Nabumetone [Relafen] 500 mg PO BID 10/13/16 [Last Taken 10/13/16] Ranitidine HCl [Zantac] 150 mg PO BID 10/13/16 [Last Taken 10/13/16] Simvastatin 20 mg PO HS 10/13/16 [Last Taken 10/12/16] metFORMIN HCL [Metformin HCl ER] 1,000 mg PO BID 10/13/16 [Last Taken 10/13/16] Aspirin 81 mg PO DAILY 05/08/17 [Last Taken Unknown] Famotidine 20 mg PO BID 05/08/17 [Last Taken Unknown] - History of Present Illness Narrative: Patient was at a routine wound care appointment today with Dr Alston when she became concerned about the redness and swelling in his right foot and leg. He has been dealing with that wound since December, he is an insulin dependent diabetic. Patient denies any symptoms, no pain, no feeling in his legs (neuropathy) Review of Systems - Review of Systems Constitutional: Absent: recent illness, fever, chills Respiratory: Absent: shortness of breath Cardiology: Absent: chest pain Gastrointestinal/Abdominal: Present: other - no bleeding, no dark stools. Absent: nausea, vomiting, abdominal pain Musculoskeletal: Present: See HPI Skin: Present: See HPI Neurological: Present: numbness - chronic Hematologic/Lymphatic: Absent: easy bruising, easy bleeding - Patient's Past Medical History Patient History - Medical: Diabetes Type 2 Patient History - Cardiac/Respiratory: CVA/Stroke, Hypertension Patient History - Cancer: No Hx of Cancer Patient History - Surgical Procedures: Total Knee Replacement, Other Patient History - Other: None - Family History Mother Family History - Medical: , Diabetes Type 2 Family History - Cardiac/Respiratory: CHF, Hypertension Father Family History - Medical: Family History - Cardiac/Respiratory: Hypertension - Social History Living Situations: home Abuse History: No History of abuse Psych History: No pertinent hx Alcohol Use: none Drug Use: none - Immunizations Immunizations Up to Date: Yes Hx Pneumococcal Vaccination: Yes History of Influenza Vaccine: Yes Physical Exam - Physical Exam General Appearance: Present: wd/wn, alert, no apparent distress, obese Respiratory: Present: no respiratory distress, normal breath sounds, lungs clear Cardiovascular/Chest: Present: regular rate, rhythm, no murmur Extremity Exam: Present: normal except - - right lateral foot: well healing wound, reminder of the foot swollen and erythematous, no other wound, other - 2cm calf circumference difference Neurological Exam: Present: alert, oriented, normal mood/affect Skin Exam: Present: warm/dry, pallor ED Progress - Results and Orders Patient's Lab Results:: I have reviewed the patient's lab results. - Vital Signs Patient's Vital Signs:: I have reviewed the patient's vital signs. Vital Signs: Vital Signs 05/08/17 05/08/17 14:11 14:56 Temperature 37.4 C 36.9 C Pulse Rate 75 Respiratory 16 Rate Blood Pressure 138/60 149/75 O2 Sat by Pulse 99 Oximetry - X-Ray X-Ray #1 X-Ray: foot - possible osteomyelitis Interpretation: Reviewed by me - CT/Ultrasound CT/Ultrasound Narrative: right venous doppler: no DVT, edema, right inguinal lymphadenopathy - Progress/Reassessment Chief Complaint: Foot Injury/Pain Progress Note-Subjective: 05/08/17 17:00 discussed admission for osteomyelitis with Dr Dee, agreed to admission, start zosyn and vancomycin, consult Dr Alston 05/08/17 17:[address] Alston to continue to care for patient while inpatient discussed results and plan with patient, agreed to admission Departure Clinical Impression: Diabetic ulcer of right foot due to type 2 diabetes mellitus Osteomyelitis of right foot Qualifiers: Osteomyelitis type: unspecified type Qualified Code(s): M86.9 - Osteomyelitis, unspecified Anemia Qualifiers: Anemia type: unspecified type Qualified Code(s): D64.9 - Anemia, unspecified - Departure Disposition: [facility] Condition: Stable
[2017-05-08 15:34] LABS: Mean Cell Volume 89.5 fl (78-100); Mean Corpuscular Hemoglobin 28.4 pg (27-31); Mean Corpuscular Hgb Conc 31.7 g/dl (32-36); Mean Platelet Volume 10.4 fl (6.0-9.5); Neutrophil % 72.1 % (42-75.0); Platelet Count 195 K/mm3 (150-450); Red Blood Count 2.57 M/mm3 (4.7-6.0); Red Cell Distribution Width 16.6 % (11.5-14.0)
[2017-05-08 15:39] LABS: Hemoglobin 7.3 gm/dL (13.5-18.0)
[2017-05-08 16:41] LABS: Albumin * 2.1 gm/dl (3.4-5.0); Anion Gap 14.5 mmol/L (6.8-13.8); BUN/Creatinine Ratio 9.1 (9.0-21.6); Bilirubin, Total 0.5 mg/dL (0.0-1.1); CRP 9.9 mg/dL (0.0-0.9); Calcium * 7.8 mg/dL (7.9-10.9); Carbon Dioxide 21.5 mmol/L (24-32.6); Total Protein 7.1 gm/dL (6.2-8.2)
[2017-05-08] MEDS ORDERED: VANCOMYCIN HCL 1 GM in DEXTROSE 5 % IN WATER 250 ML IV SCH ×4 (17:45→22:45)
[2017-05-08] MEDS ORDERED: VANCOMYCIN HCL 2 GM in DEXTROSE 5 % IN WATER 500 ML IV SCH ×2 (18:00)
[2017-05-08] MEDS: PIPERACILLIN SODIUM/TAZOBACTAM 3.375 GM in DEXTROSE 5 % IN WATER 100 ML IV SCH ×2 (18:38)
[2017-05-08] MEDS: SACCHAROMYCES BOULARDII 250 MG CAPSULE PO SCH (20:25)
--- NOTE | 2017-05-08 20:59 | HP ---
Chief Complaint - Chief Complaint Date of Service: 05/08/17 Time of Service: 20:59 Chief Complaint: right lower leg cellulitis, right diabetic foot wound, suspect osteomyelitis History of Present Illness: Chay is a 57 year old male patient of Dr. Bloom with a PMH of DM T2 (on lantus , amaryl, and metformin), mild to moderate non-obstructing CAD in 3 vessels (on ASA, Plavix, Imdur, lopressor and simvastatin), hx CVA in 2008 requiring TPA ( on ASA and Plavix), HTN (on lisinopril and lopressor), tobacco abuse, obesity, and HLD (on simvastatin) who presented to the wound center for his recheck appointment regarding chronic diabetic ulcer of the right lateral foot. Patient sees Dr. Alston and previously had been on ciprofloxacin antibiotic starting 04/16/17 for 21 days. debridement of the right lateral foot ulcer was done in the wound clinic. During assessment, patient was noticed to have increasing erythema and edema that encompassed the whole right foot and extended up his right leg to just below his right knee. For this reason, the patient was sent to the ER for evaluation. ER evaluation revealed wbc and neutrophils both wnl. hgb/hct low at 7.3/23.0. hgb during december 2016 ran approximately around 11.0. hgb in october 2016 was 14.0. ESR greater than 120. crp 9.9. d-dimer 3.15. cmp notable for creatinine 1.75 (baseline runs 0.7 -1.0). right venous doppler was negative for dvt but showed diffuse subcutaneous edema and right inguinal adenopathy. right foot xray showed radiologic findings concerning for osteomyelitis / septic arthritis involving multiple tarsal and metatarsal bones. no definite signs of soft tissue gas was seen. Patient to be admitted for RLE cellulitis, diabetic ulcer right foot suspected osteomyelitis, anemia and ALEK. Of note, patient's last admission was December 2016 (also for osteomyelitis of right foot) where on 12/22/16 he underwent incision and debridement with removal of infected tissue and bone with excision of 5th metatarsal head, right foot, by Dr. Alston. Previous wound cultures of his chronic diabetic foot ulcer on his right foot have grow MRSA. last echo done 11/2008 showed normal ef with no significant valvular heart disease. - Patient's Past Medical History Patient History - Medical: Diabetes Type 2 Insulin Dependent, Depression, GERD, Obesity Patient History - Cardiac/Respiratory: Coronary Heart Disease, CVA/Stroke, Hypertension Patient History - Cancer: No Hx of Cancer Patient History - Surgical Procedures: Total Knee Replacement, Other Patient History - Other: None - Family History Mother Family History - Medical: , Diabetes Type 2 Family History - Cardiac/Respiratory: CHF, Hypertension Father Family History - Medical: Family History - Cardiac/Respiratory: Hypertension - Social History Living Situations: home Abuse History: No History of abuse Psych History: No pertinent hx Smoking Status: Current every day smoker Have you smoked in the past 12 months: Yes Alcohol Use: none Drug Use: none - Immunizations Immunizations Up to Date: Yes Hx Pneumococcal Vaccination: Yes History of Influenza Vaccine: Yes Review Of Systems (GEN) - Review of Systems Generalized/Overall Review: Present: No Symptoms Reported EENTM: Present: No Symptoms Reported Respiratory: Present: No Symptoms Reported Cardiac: Present: Edema. Absent: Chest Pain, Syncope Abdominal: Present: No Symptoms Reported. Absent: Nausea, Vomiting, Hematemesis , Abdominal Pain, Constipation, Diarrhea, Melena, Bright blood from rectum Genitourinary: Present: No Symptoms Reported Musculoskeletal: Present: Joint Pain, Joint Swelling Neurological: Present: No Symptoms Reported Skin: Present: No Symptoms Reported Endocrine: Present: No Symptoms Reported Misc: All systems neg except as marked Immunizations: IMMUNIZATION HX Immunizations Up to Date Yes History of Influenza Vaccine Yes Hx Pneumococcal Vaccination Yes Allergies/Adverse Reactions: Allergies Allergy/AdvReac Type Severity Reaction Status Date / Time cefazolin Allergy Intermediate Vomiting Verified 05/08/17 15:01 cephalexin AdvReac Vomiting Verified 05/08/17 17:28 Home Medications: HOME MEDICATIONS Citalopram Hydrobromide [Celexa] 20 mg PO DAILY 10/13/16 [Last Taken 10/12/16] Clopidogrel Bisulfate [Plavix] 75 mg PO DAILY 10/13/16 [Last Taken 10/13/16] Cyanocobalamin [Vitamin B-12] 1,000 mcg IM Q30D 10/13/16 [Last Taken Unknown] Gabapentin 600 mg PO BID 10/13/16 [Last Taken 10/12/16] Glimepiride [Amaryl] 2 mg PO DAILY 10/13/16 [Last Taken 10/12/16] Insulin Glargine,Hum.rec.anlog [Lantus] 30 units SC QAM 10/13/16 [Last Taken 03/24] Insulin Glargine,Hum.rec.anlog [Lantus] 60 units SC HS 10/13/16 [Last Taken 02/21] Isosorbide Mononitrate [Imdur] 30 mg PO DAILY 10/13/16 [Last Taken 10/12/16] Lisinopril [Zestril] 20 mg PO DAILY 10/13/16 [Last Taken 10/13/16] Metoprolol Tartrate [Lopressor] 25 mg PO BID 10/13/16 [Last Taken 10/13/16] Nabumetone [Relafen] 500 mg PO BID 10/13/16 [Last Taken 10/13/16] Ranitidine HCl [Zantac] 150 mg PO BID 10/13/16 [Last Taken 10/13/16] Simvastatin 20 mg PO HS 10/13/16 [Last Taken 10/12/16] metFORMIN HCL [Metformin HCl ER] 1,000 mg PO BID 10/13/16 [Last Taken 10/13/16] Albuterol Sulfate/Ipratropium [Duoneb 2.5-0.5MG/3ML Soln] 3 ml IH QID 05/08/17 [ Last Taken Unknown] Aspirin 81 mg PO DAILY 05/08/17 [Last Taken Unknown] Famotidine 20 mg PO BID 05/08/17 [Last Taken Unknown] Exam - Exam Vital Signs: Vital Signs - Last Taken Temp 36.8 C 05/08/17 19:50 Pulse 76 05/08/17 19:50 Resp 16 05/08/17 19:50 BP 154/72 05/08/17 19:50 Pulse Ox 97 05/08/17 19:50 Constitutional: Present: Alert, Cooperative, No distress, Looks Older than stated age Eye Exam: bilateral eye: normal inspection Neck: Present: supple Breasts: Present: Exam deferred Respiratory: Present: lungs clear, normal breath sounds, no respiratory distress , no accessory muscle use Cardiovascular/Chest: Present: normal peripheral pulses, regular rate, rhythm, no chest tenderness, no murmur Peripheral Pulses: carotid (R): 2+, carotid (L): 2+, radial (R): 2+, radial (L) : 2+ Abdomen: Present: soft, nontender, nondistended /Rectal: Present: Exam deferred Extremity: Present: inflammation - right lower leg, lower extremity edema - 2+ pitting edema right lower leg, leg pain - right lower leg Skin Exam: Present: warm/dry, no cyanosis, pallor Diagnostic Studies: Laboratory Results WBC 7.0 K/mm3 (4.0-10.5) 05/08/17 15:25 RBC 2.57 M/mm3 (4.7-6.0) L 05/08/17 15:25 Hgb 7.3 gm/dL (13.5-18.0) L* D 05/08/17 15:25 Hct 23.0 % (42.0-52.0) L* D 05/08/17 15:25 MCV 89.5 fl (78-100) 05/08/17 15:25 MCH 28.4 pg (27-31) 05/08/17 15:25 MCHC 31.7 g/dl (32-36) L 05/08/17 15:25 RDW 16.6 % (11.5-14.0) H 05/08/17 15:25 Plt Count 195 K/mm3 (150-450) 05/08/17 15:25 MPV 10.4 fl (6.0-9.5) H 05/08/17 15:25 Immature Gran % (Auto) 0.70 % (0.001-0.429) H 05/08/17 15:25 Immature Gran # (Auto) 0.05 K/mm3 (0.000-0.0310) H 05/08/17 15:25 Neutrophils % 72.1 % (42-75.0) 05/08/17 15:25 Lymphocytes % 19.1 % (20-51) L 05/08/17 15:25 Monocytes % 6.7 % (0.0-9) 05/08/17 15:25 Eosinophils % 1.3 % (0.0-3.0) 05/08/17 15:25 Basophils % 0.1 % (0.0-1.0) 05/08/17 15:25 Nucleated RBC % 0.0 k/mm3 (0-1) 05/08/17 15:25 Neutrophils # 5.0 K/mm3 (1.3-6.0) 05/08/17 15:25 Lymphocytes # 1.3 k/mm3 (1.5-3.5) L 05/08/17 15:25 Monocytes # 0.5 k/mm3 (0.0-1.0) 05/08/17 15:25 Eosinophils # 0.1 k/mm3 (0.0-0.7) 05/08/17 15:25 Absolute Basophils 0.0 k/mm3 (0.0-0.1) 05/08/17 15:25 ESR Greater than 120 mm/hr (0-10) H 05/08/17 15:25 D-Dimer 3.15 mg/L (0.19-0.49) H 05/08/17 15:25 Sodium 134 mmol/L (132-142) 05/08/17 15:25 Plasma Sodium 134 mmol/L (130-142) 05/08/17 15:25 Potassium 4.0 mmol/L (3.4-4.6) 05/08/17 15:25 Chloride 102 mmol/L (97-106) 05/08/17 15:25 Carbon Dioxide 21.5 mmol/L (24-32.6) L 05/08/17 15:25 Anion Gap 14.5 mmol/L (6.8-13.8) H 05/08/17 15:25 BUN 16 mg/dL (6-23) D 05/08/17 15:25 Creatinine 1.75 mg/dL (0.4-1.4) H D 05/08/17 15:25 Est GFR (Non-Af Amer) 43 mL/min (60-130) L D 05/08/17 15:25 BUN/Creatinine Ratio 9.1 (9.0-21.6) 05/08/17 15:25 Random Glucose 78 mg/dL (70-110) 05/08/17 15:25 Calcium 7.8 mg/dL (7.9-10.9) L 05/08/17 15:25 Calcium Adj for Albumin 9.0 mg/dL (8.4-10.2) 05/08/17 15:25 Total Bilirubin 0.5 mg/dL (0.0-1.1) 05/08/17 15:25 AST 16 U/L (0-48) 05/08/17 15:25 ALT 9 U/L (19-67) L 05/08/17 15:25 Alkaline Phosphatase 123 U/L (50-170) 05/08/17 15:25 C-Reactive Prot, Quant 9.9 mg/dL (0.0-0.9) H 05/08/17 15:25 Total Protein 7.1 gm/dL (6.2-8.2) 05/08/17 15:25 Albumin 2.1 gm/dl (3.4-5.0) L 05/08/17 15:25 Assessment/Plan - Narrative Narrative: Cellulitis of right lower extremity - history of MRSA - will treat to cover - Antibiotics - Vancomycin 1 gm iv q 24 hours - Day #1 - dosed for renal function - Zosyn 3.375 mg iv q 8 hours - Day #1 - Previous oral antibiotic therapy - Ciprofloxacin started 04/16/17 for 21 days. - Dressing change daily per Dr Alston's wound care notes - wash with soap and water. redress with Aquacel Aq, cover with dry dressing of howard and ruth, then secure with Tavo bandage. - Obtain wound culture of right lateral foot ulcer - final culture pending. - ESR greater than 120, crp 9.9 - trend while admitted - wbc and neutrophils wnl - check labs in am. - MRI of right foot pending - Consult Dr Alston Diabetic ulcer right foot - see above plan of care Anemia - ? etiology - appears to be slowly dropping hgb over time (oct 2016 14.0 --> dec 2016 11.0 --> may 2017 7.5) - ? chemical gastritis with gi bleed vs ulcer vs other ? - pt denies blood in stool, dizziness, fatigue - heme occult stools x3 - start protonix iv q 12 hours for GI protection - transfuse 1 unit PRBCs - due to hx CAD and hx CVA - premedicate with IV benadryl and tylenol - recheck hgb/hct 2 hours post transfusion - keep 1 unit on hold to transfuse if needed. Acute Kidney Injury - current creatinine 1.75 (baseline 0.7-1.0) - likely secondary to significant anemia (pre-renal in origin) - ? additional factors adding to ALEK such as drug induced vs others. - check UA - look for urine protein, etc. - hydrate with NS @ 125 ml/hr since no known history CHF - recheck labs in am. Diabetes - accu-check QID with sliding scale insulin as needed (low dose) - continue metformin, amaryl and lantus - consistent carb diet CAD - history 3v mild to moderate non-obstructing CAD per angiogram in 2008 - continue lopressor - hold asa, plavix and simvastatin for now due to anemia / possible GIB Hx CVA - required use of TPA in 2008 - hold asa and plavix for now due to anemia / possible GIB GERD - hold po reflux meds for now due to anemia / possible GIB - start protonix IV q12 hours for possible GIB HTN - vital signs q 4 hours - hold lisinopril for now due to elevated creatinine tobacco abuse - smoking cessation Code status: DNR VTE: no lovenox due to anemia / possible GIB; no SCDs due to lower extremity wound. GI proph: protonix iv. - Assessment/Plan (1) Cellulitis of right lower extremity Problem: Acute (2) ALEK (acute kidney injury) Problem: Acute (3) Anemia Problem: Acute Qualifiers: Anemia type: unspecified type Qualified Code(s): D64.9 - Anemia, unspecified (4) Osteomyelitis of right foot Problem: Acute Qualifiers: Osteomyelitis type: unspecified type Qualified Code(s): M86.9 - Osteomyelitis, unspecified (5) Diabetic ulcer of right foot due to type 2 diabetes mellitus Problem: Chronic (6) DM type 2 (diabetes mellitus, type 2) Problem: Chronic Qualifiers: Diabetes mellitus complication status: with skin complications Diabetes mellitus complication detail: with foot ulcer Diabetes mellitus correction insulin use: with oil heaterman use Qualified Code(s): E11.621 - Type 2 diabetes mellitus with foot ulcer; L97.509 - Non-pressure chronic ulcer of other part of unspecified foot with unspecified severity; Z79.4 - custodial (current) use of insulin (7) Hypertension Problem: Chronic Qualifiers: Hypertension type: essential hypertension Qualified Code(s): I10 - Essential (primary) hypertension (8) GERD (gastroesophageal reflux disease) Problem: Chronic Qualifiers: Esophagitis presence: esophagitis presence not specified Qualified Code(s) : K21.9 - Gastro-esophageal reflux disease without esophagitis (9) CVA (cerebral vascular accident) Problem: Chronic Qualifiers: CVA mechanism: unspecified Qualified Code(s): I63.9 - Cerebral infarction, unspecified (10) CAD (coronary artery disease) Problem: Chronic Qualifiers: Coronary Disease-Associated Artery/Lesion type: [place] artery [place] vs. transplanted heart: [place] heart Associated angina: angina presence unspecified Qualified Code(s): I25.10 - Atherosclerotic heart disease of [place] coronary artery without angina pectoris
[2017-05-08] MEDS ORDERED: PANTOPRAZOLE SODIUM 40 MG in NORMAL SALINE 100 ML IV SCH (21:15)
[2017-05-08] MEDS ORDERED: metFORMIN HCL 500 MG TABLET ONE (21:33)
[2017-05-08] MEDS ORDERED: INSULIN GLARGINE,HUM.REC.ANLOG 100 UNITS/ML VIAL SC ONE (21:45)
[2017-05-08] MEDS ORDERED: ACETAMINOPHEN 325 MG TABLET PO ONE (21:47)
[2017-05-08] MEDS ORDERED: diphenhydrAMINE HCL 50 MG/ML VIAL IV ONE (21:47)
[2017-05-08] MEDS ORDERED: NABUMETONE 500 MG TABLET PO SCH (22:00)
[2017-05-08] MEDS ORDERED: ALBUTEROL SULFATE/IPRATROPIUM 3 ML NEBU IH SCH (22:00)
[2017-05-08] MEDS ORDERED: INSULIN GLARGINE,HUM.REC.ANLOG 100 UNITS/ML VIAL SC SCH (22:00)
[2017-05-08] MEDS: NORMAL SALINE 1,000 ML IV PRN (22:02)
[2017-05-08] MEDS: METOPROLOL TARTRATE 25 MG TABLET PO SCH (22:09)
[2017-05-08] MEDS: GABAPENTIN 300 MG CAPSULE PO SCH (22:09)
[2017-05-08] MEDS: PANTOPRAZOLE SODIUM 40 MG in NORMAL SALINE 100 ML IV SCH (22:10)
[2017-05-08] MEDS ORDERED: ACETAMINOPHEN 325 MG TABLET ONE (22:54)
[2017-05-08] MEDS ORDERED: diphenhydrAMINE HCL 50 MG/ML VIAL ONE (22:54)
[2017-05-09] MEDS: PIPERACILLIN SODIUM/TAZOBACTAM 3.375 GM in DEXTROSE 5 % IN WATER 100 ML IV SCH ×6 (01:40→16:50)
[2017-05-09 02:03] LABS: Urine Bilirubin Negative (NEGATIVE); Urine Blood 250 /ul (NEGATIVE); Urine Ketone Negative (NEGATIVE); Urine Nitrite Negative (NEGATIVE); Urine Protein 100 mg/dL (NEGATIVE); Urine Specific Gravity <=1.005 SP.GR. (1.005-1.030); Urine Urobilinogen Normal (NORMAL)
[2017-05-09 02:07] LABS: Urine Appearance Slightly Cloudy; Urine Color Brown; Urine RBC 25-50 /hpf (0-5); Urine WBC 0-5 /hpf (0-5)
[2017-05-09 02:08] LABS: Urine Amorphous Sediment Moderate - 2+ (NONE-FEW); Urine Bacteria None Seen
[2017-05-09 05:59] LABS: Hematocrit 25.4 % (42.0-52.0); Mean Cell Volume 90.1 fl (78-100); Mean Corpuscular Hemoglobin 28.4 pg (27-31); Mean Corpuscular Hgb Conc 31.5 g/dl (32-36); Mean Platelet Volume 10.5 fl (6.0-9.5); Neutrophil # 4.5 K/mm3 (1.3-6.0); Neutrophil % 80.7 % (42-75.0); Platelet Count 139 K/mm3 (150-450); Red Blood Count 2.82 M/mm3 (4.7-6.0); Red Cell Distribution Width 16.2 % (11.5-14.0); White Blood Count 5.5 K/mm3 (4.0-10.5)
--- NOTE | 2017-05-09 06:15 | PN ---
Subjective - Date and Time Seen Date: 05/09/17 Time: 06:08 Subjective Narrative: states he feels a little better. no cp, no dyspnea. Objective - Review of Systems Generalized/Overall Review: Reports: No Symptoms Reported EENTM: Reports: No Symptoms Reported Respiratory: Reports: No Symptoms Reported Cardiac: Reports: Edema. Denies: Chest Pain, Palpitations, Syncope Abdominal: Reports: No Symptoms Reported Genitourinary Symptoms: Reports: No Symptoms Reported Musculoskeletal Complaints: Reports: No Symptoms Reported Neurological: Reports: No Symptoms Reported Skin: Reports: Lesions, Change in Color Endocrine: Reports: No Symptoms Reported Misc: All systems neg except as marked - Vitals Vitals: Last Vital Signs Temp 36.9 C 05/09/17 03:04 Pulse 76 05/09/17 03:04 Resp 18 05/09/17 03:04 BP 131/62 05/09/17 03:04 Pulse Ox 92 05/09/17 03:04 - Abnormal Lab Findings Abnormal Lab Findings: Abnormal Lab Results 05/08/17 05/09/17 Range/Units 22:03 01:47 Urine Protein 100 H (NEGATIVE) mg/dL Urine Blood 250 H (NEGATIVE) /ul Prot Sulfosalicylic Acd 4+ H (0) mg/dL Urine RBC 25-50 H (0-5) /hpf Amorphous Sediment Moderate - 2+ H (NONE-FEW) Crossmatch See Detail - Exam Constitutional: Present: Alert, Cooperative, No distress, Looks Older than stated age ENT Exam: Present: hearing grossly normal Neck: Present: supple Breasts: Present: Exam deferred Respiratory: Present: normal breath sounds, no respiratory distress, no accessory muscle use Cardiovascular/Chest: Present: normal peripheral pulses, regular rate, rhythm, no chest tenderness Abdomen: Present: soft, nontender, nondistended /Rectal: Present: Exam deferred Extremity: Present: normal inspection - left leg, inflammation - right foot up to just below right knee, lower extremity edema - 2+ pitting edema right lower leg, leg pain - right lower leg Skin Exam: Present: warm/dry, no cyanosis, pallor Assessment/Plan Plan Narrative: Cellulitis of right lower extremity - history of MRSA - will treat to cover - Antibiotics - Vancomycin 1 gm iv q 24 hours - Day #2 - dosed for renal function - Zosyn 3.375 mg iv q 8 hours - Day #2 - Previous oral antibiotic therapy - Ciprofloxacin started 04/16/17 for 21 days. - constitutes failure of outpatient treatment - Dressing change daily per Dr Alston's wound care notes - wash with soap and water. redress with Aquacel Aq, cover with dry dressing of guaze and ruth, then secure with Tavo bandage. - culture of right lateral foot ulcer pending - ESR greater than 120, crp 9.9 - trend while admitted - wbc and neutrophils wnl on admission - am labs pending - MRI of right foot pending - Consult Dr Alston Diabetic ulcer right foot - see above plan of care Anemia - ? etiology - appears to be slowly dropping hgb over time (oct 2016 14.0 --> dec 2016 11.0 --> may 2017 7.5) - ? chemical gastritis with gi bleed vs ulcer vs other ? - pt denies blood in stool, dizziness, fatigue - heme occult stools x3 - protonix iv q 12 hours for GI protection - 1 unit PRBCs transfused - due to hx CAD and hx CVA - premedicated with IV benadryl and tylenol - am labs pending - keep 1 unit on hold to transfuse if needed. Acute Kidney Injury - admission creatinine 1.75 (baseline 0.7-1.0) - likely secondary to significant anemia (pre-renal in origin) - ? additional factors adding to ALEK such as drug induced vs others. - check UA - shows protein and blood - hydrate with NS @ 125 ml/hr since no known history CHF - am labs pending Diabetes - accu-check QID with sliding scale insulin as needed (low dose) - continue metformin, amaryl and lantus - consistent carb diet CAD - history 3v mild to moderate non-obstructing CAD per angiogram in 2008 - continue lopressor - hold asa, plavix and simvastatin for now due to anemia / possible GIB Hx CVA - required use of TPA in 2008 - hold asa and plavix for now due to anemia / possible GIB GERD - hold po reflux meds for now due to anemia / possible GIB - start protonix IV q12 hours for possible GIB HTN - vital signs q 4 hours - hold lisinopril for now due to elevated creatinine tobacco abuse - smoking cessation Code status: DNR VTE: no lovenox due to anemia / possible GIB; no SCDs due to lower extremity wound. GI proph: protonix iv. - Problems/Diagnosis (1) Cellulitis of right lower extremity Problem: Acute (2) ALEK (acute kidney injury) Problem: Acute (3) Anemia Problem: Acute Qualifiers: Anemia type: unspecified type Qualified Code(s): D64.9 - Anemia, unspecified (4) Osteomyelitis of right foot Problem: Acute Qualifiers: Osteomyelitis type: unspecified type Qualified Code(s): M86.9 - Osteomyelitis, unspecified (5) Diabetic ulcer of right foot due to type 2 diabetes mellitus Problem: Chronic (6) DM type 2 (diabetes mellitus, type 2) Problem: Chronic Qualifiers: Diabetes mellitus complication status: with skin complications Diabetes mellitus complication detail: with foot ulcer Diabetes mellitus skilled nursing insulin use: with manager long term care use Qualified Code(s): E11.621 - Type 2 diabetes mellitus with foot ulcer; L97.509 - Non-pressure chronic ulcer of other part of unspecified foot with unspecified severity; Z79.4 - USP (current) use of insulin (7) Hypertension Problem: Chronic Qualifiers: Hypertension type: essential hypertension Qualified Code(s): I10 - Essential (primary) hypertension (8) GERD (gastroesophageal reflux disease) Problem: Chronic Qualifiers: Esophagitis presence: esophagitis presence not specified Qualified Code(s) : K21.9 - Gastro-esophageal reflux disease without esophagitis (9) CVA (cerebral vascular accident) Problem: Chronic Qualifiers: CVA mechanism: unspecified Qualified Code(s): I63.9 - Cerebral infarction, unspecified (10) CAD (coronary artery disease) Problem: Chronic Qualifiers: Coronary Disease-Associated Artery/Lesion type: [place] artery [place] vs. transplanted heart: [place] heart Associated angina: angina presence unspecified Qualified Code(s): I25.10 - Atherosclerotic heart disease of [place] coronary artery without angina pectoris
[2017-05-09 06:16] LABS: Anion Gap 11.5 mmol/L (6.8-13.8); BUN/Creatinine Ratio 9.6 (9.0-21.6); CRP 10.4 mg/dL (0.0-0.9); Carbon Dioxide 23.6 mmol/L (24-32.6); Estimated Creat Clear 59.2; Potassium 4.1 mmol/L (3.4-4.6)
[2017-05-09] MEDS: INSULIN LISPRO 100 UNITS/ML VIAL SC SCH ×4 (06:36→21:06)
[2017-05-09] MEDS ORDERED: LISINOPRIL 20 MG TABLET PO SCH (09:00)
[2017-05-09] MEDS ORDERED: INSULIN GLARGINE,HUM.REC.ANLOG 100 UNITS/ML VIAL SC SCH ×2 (09:00→21:00)
[2017-05-09] MEDS: METOPROLOL TARTRATE 25 MG TABLET PO SCH ×2 (09:20→21:07)
[2017-05-09] MEDS: ISOSORBIDE MONONITRATE 30 MG TAB.SR.24H PO SCH (09:20)
[2017-05-09] MEDS: CITALOPRAM HYDROBROMIDE 20 MG TABLET PO SCH (09:20)
[2017-05-09] MEDS: GLIMEPIRIDE 2 MG TABLET PO SCH (09:20)
[2017-05-09] MEDS: SACCHAROMYCES BOULARDII 250 MG CAPSULE PO SCH ×2 (09:20→21:07)
[2017-05-09] MEDS: GABAPENTIN 300 MG CAPSULE PO SCH ×2 (09:21→21:07)
[2017-05-09] MEDS: PANTOPRAZOLE SODIUM 40 MG in NORMAL SALINE 100 ML IV SCH ×2 (09:21→21:09)
[2017-05-09] MEDS: NORMAL SALINE 1,000 ML IV PRN (16:47)
[2017-05-09] MEDS: VANCOMYCIN HCL 1 GM in DEXTROSE 5 % IN WATER 250 ML IV SCH ×2 (16:49)
[2017-05-09] MEDS: CHLORHEX GL/ISOPROPYL ALCOHOL 960 APPL BTL TP SCH (21:08)
[2017-05-09] MEDS ORDERED: VANCOMYCIN HCL 1 GM in DEXTROSE 5 % IN WATER 250 ML IV SCH ×2 (22:00)
[2017-05-10] MEDS: NORMAL SALINE 1,000 ML IV PRN (02:09)
[2017-05-10] MEDS: PIPERACILLIN SODIUM/TAZOBACTAM 3.375 GM in DEXTROSE 5 % IN WATER 100 ML IV SCH ×2 (02:10)
[2017-05-10] MEDS: VANCOMYCIN HCL 1 GM in DEXTROSE 5 % IN WATER 250 ML IV SCH ×2 (05:31)
--- NOTE | 2017-05-10 05:49 | PN ---
Subjective - Date and Time Seen Date: 05/10/17 Time: 05:49 Subjective Narrative: feeling better. less erythema on right lower leg. Objective - Review of Systems Generalized/Overall Review: Reports: No Symptoms Reported EENTM: Reports: No Symptoms Reported Respiratory: Reports: No Symptoms Reported Cardiac: Reports: No Symptoms Reported Abdominal: Reports: No Symptoms Reported Genitourinary Symptoms: Reports: No Symptoms Reported Musculoskeletal Complaints: Reports: No Symptoms Reported Neurological: Reports: No Symptoms Reported Skin: Reports: No Symptoms Reported Endocrine: Reports: No Symptoms Reported Misc: All systems neg except as marked - Vitals Vitals: Last Vital Signs Temp 37.1 C 05/10/17 02:18 Pulse 79 05/10/17 02:18 Resp 20 05/10/17 02:18 BP 153/82 05/10/17 02:18 Pulse Ox 90 05/10/17 02:18 - Abnormal Lab Findings Abnormal Lab Findings: Abnormal Lab Results 05/08/17 05/09/17 05/09/17 Range/Units 22:03 05:56 05:56 RBC 2.82 L (4.7-6.0) M/mm3 Hgb 8.0 L (13.5-18.0) gm/dL Hct 25.4 L (42.0-52.0) % MCHC 31.5 L (32-36) g/dl RDW 16.2 H (11.5-14.0) % Plt Count 139 L (150-450) K/mm3 MPV 10.5 H (6.0-9.5) fl Immature Gran % (Auto) 1.10 H (0.001-0.429) % Immature Gran # (Auto) 0.06 H (0.000-0.0310) K/mm3 Neutrophils % 80.7 H (42-75.0) % Lymphocytes % 10.3 L (20-51) % Lymphocytes # 0.6 L (1.5-3.5) k/mm3 ESR (0-10) mm/hr Carbon Dioxide 23.6 L (24-32.6) mmol/L Creatinine 1.67 H (0.4-1.4) mg/dL Est GFR (Non-Af Amer) 45 L (60-130) mL/min Random Glucose 60 L (70-110) mg/dL C-Reactive Prot, Quant 10.4 H (0.0-0.9) mg/dL Crossmatch See Detail 05/09/17 Range/Units 05:56 RBC (4.7-6.0) M/mm3 Hgb (13.5-18.0) gm/dL Hct (42.0-52.0) % MCHC (32-36) g/dl RDW (11.5-14.0) % Plt Count (150-450) K/mm3 MPV (6.0-9.5) fl Immature Gran % (Auto) (0.001-0.429) % Immature Gran # (Auto) (0.000-0.0310) K/mm3 Neutrophils % (42-75.0) % Lymphocytes % (20-51) % Lymphocytes # (1.5-3.5) k/mm3 ESR 117 H (0-10) mm/hr Carbon Dioxide (24-32.6) mmol/L Creatinine (0.4-1.4) mg/dL Est GFR (Non-Af Amer) (60-130) mL/min Random Glucose (70-110) mg/dL C-Reactive Prot, Quant (0.0-0.9) mg/dL Crossmatch - Exam Constitutional: Present: Alert, Cooperative, No distress, Looks Younger than stated age Neck: Present: full range of motion, supple Breasts: Present: Exam deferred Respiratory: Present: lungs clear, normal breath sounds Cardiovascular/Chest: Present: normal peripheral pulses, regular rate, rhythm Abdomen: Present: soft, nontender, nondistended /Rectal: Present: Exam deferred Extremity: Present: normal inspection - left leg, inflammation - right foot extending half way up right tavares, lower extremity edema - +1 pitting edema right lower extremity Skin Exam: Present: normal color, warm/dry, no cyanosis Assessment/Plan Plan Narrative: Cellulitis of right lower extremity - history of MRSA - will treat to cover - Antibiotics - Vancomycin 1 gm iv q 24 hours - Day #3 - dosed for renal function - Zosyn 3.375 mg iv q 8 hours - Day #3 - Previous oral antibiotic therapy - Ciprofloxacin started 04/16/17 for 21 days. - constitutes failure of outpatient treatment - Dressing change daily per Dr Alston's wound care notes - wash with soap and water. redress with Aquacel Aq, cover with dry dressing of guaze and ruth, then secure with Tavo bandage. - culture of right lateral foot ulcer pending - ESR greater than 117, crp 10.4 on 05/09/17 - trend while admitted - awaiting am labs - MRI of right foot shows extensive osteomyelitis - Consult Dr Alston Diabetic ulcer right foot - see above plan of care Anemia - s/p 2 units PRBCs - am labs pending Acute Kidney Injury - admission creatinine 1.75 (baseline 0.7-1.0) - improving, was 1.67 on 05/09/17 - am labs pending - hydrate with NS @ 125 ml/hr since no known history CHF Diabetes - accu-check QID with sliding scale insulin as needed (low dose) - continue metformin, amaryl - lantus dc'd due to low blood sugar - consistent carb diet CAD - history 3v mild to moderate non-obstructing CAD per angiogram in 2008 - continue lopressor Hx CVA - required use of TPA in 2008 GERD - start protonix po HTN - vital signs q 4 hours - hold lisinopril for now due to elevated creatinine tobacco abuse - smoking cessation Code status: DNR VTE: no lovenox due to anemia ; no SCDs due to lower extremity wound. 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 Problem: Chronic (6) DM type 2 (diabetes mellitus, type 2) Problem: Chronic Qualifiers: Diabetes mellitus complication status: with skin complications Diabetes mellitus complication detail: with foot ulcer Diabetes mellitus retirement insulin use: with intermodal customer service use Qualified Code(s): E11.621 - Type 2 diabetes mellitus with foot ulcer; L97.509 - Non-pressure chronic ulcer of other part of unspecified foot with unspecified severity; Z79.4 - retirement (current) use of insulin (7) Hypertension Problem: Chronic Qualifiers: Hypertension type: essential hypertension Qualified Code(s): I10 - Essential (primary) hypertension (8) GERD (gastroesophageal reflux disease) Problem: Chronic Qualifiers: Esophagitis presence: esophagitis presence not specified Qualified Code(s) : K21.9 - Gastro-esophageal reflux disease without esophagitis (9) CVA (cerebral vascular accident) Problem: Chronic Qualifiers: CVA mechanism: unspecified Qualified Code(s): I63.9 - Cerebral infarction, unspecified (10) CAD (coronary artery disease) Problem: Chronic Qualifiers: Coronary Disease-Associated Artery/Lesion type: [place] artery [place] vs. transplanted heart: [place] heart Associated angina: angina presence unspecified Qualified Code(s): I25.10 - Atherosclerotic heart disease of [place] coronary artery without angina pectoris
[2017-05-10 05:57] LABS: Hematocrit 24.9 % (42.0-52.0); Mean Cell Volume 89.6 fl (78-100); Mean Corpuscular Hemoglobin 28.8 pg (27-31); Mean Corpuscular Hgb Conc 32.1 g/dl (32-36); Mean Platelet Volume 10.8 fl (6.0-9.5); Neutrophil # 3.7 K/mm3 (1.3-6.0); Neutrophil % 71.7 % (42-75.0); Platelet Count 151 K/mm3 (150-450); Red Blood Count 2.78 M/mm3 (4.7-6.0); Red Cell Distribution Width 15.9 % (11.5-14.0); White Blood Count 5.1 K/mm3 (4.0-10.5)
[2017-05-10 06:08] LABS: Anion Gap 14.6 mmol/L (6.8-13.8); Calcium * 7.6 mg/dL (7.9-10.9); Carbon Dioxide 20.6 mmol/L (24-32.6); Estimated Creat Clear 46.4; Potassium 4.2 mmol/L (3.4-4.6)
[2017-05-10] MEDS: INSULIN LISPRO 100 UNITS/ML VIAL SC SCH ×4 (07:08→20:51)
[2017-05-10] MEDS: PANTOPRAZOLE SODIUM 40 MG TABLET.EC PO SCH (07:10)
[2017-05-10] MEDS: CLINDAMYCIN PHOSPHATE 600 MG in DEXTROSE 5 % IN WATER 100 ML IV SCH ×6 (07:22→22:36)
[2017-05-10] MEDS: SACCHAROMYCES BOULARDII 250 MG CAPSULE PO SCH ×2 (09:44→20:49)
[2017-05-10] MEDS: GABAPENTIN 300 MG CAPSULE PO SCH ×2 (09:44→20:49)
[2017-05-10] MEDS: GLIMEPIRIDE 2 MG TABLET PO SCH (09:45)
[2017-05-10] MEDS: CITALOPRAM HYDROBROMIDE 20 MG TABLET PO SCH (09:45)
[2017-05-10] MEDS: ISOSORBIDE MONONITRATE 30 MG TAB.SR.24H PO SCH (09:45)
[2017-05-10] MEDS: CHLORHEX GL/ISOPROPYL ALCOHOL 960 APPL BTL TP SCH ×2 (09:45→20:49)
[2017-05-10] MEDS: METOPROLOL TARTRATE 25 MG TABLET PO SCH ×2 (09:45→20:49)
[2017-05-10] MEDS: 0.5 NORMAL SALINE 1,000 ML IV PRN ×2 (10:34→22:24)
--- NOTE | 2017-05-10 12:02 | CONS ---
[facility] - General Date of Service: 05/10/17 Source: patient Exam Limitations: no limitations - History of Present Illness Initial Comments: Pt evaluated at bedside resting. He was admitted to the hospital on 05/08/2017 after being seen by me in the wound center for an ulceration to his right lateral foot. On exam he was found to have extensive edema and erythema extending up his leg. Skin was hot to touch and pt had a low grade fever. He was started on IV ABX and I was consulted for possible surgical care. Pt denies any feelings of nausea or vomiting. He denies any pain to the right lower extremity. Severity: severe Associated Symptoms: denies symptoms Allergies/Adverse Reactions: Allergies cefazolin Allergy (Intermediate, Verified 05/09/17 07:55) Vomiting cephalexin Adverse Reaction (Verified 05/09/17 07:55) Vomiting Home Medications: Home Medications Medication Instructions Recorded Last Taken Citalopram Hydrobromide [Celexa] 20 mg PO DAILY 10/13/16 10/12/16 Clopidogrel Bisulfate [Plavix] 75 mg PO DAILY 10/13/16 10/13/16 Cyanocobalamin [Vitamin B-12] 1,000 mcg IM Q30D 10/13/16 Unknown Gabapentin 600 mg PO BID 10/13/16 10/12/16 Glimepiride [Amaryl] 2 mg PO DAILY 10/13/16 10/12/16 Insulin Glargine,Hum.rec.anlog 30 units SC QA 10/13/16 10/13/16 [Lantus] Insulin Glargine,Hum.rec.anlog 60 units SC HS 10/13/16 10/12/16 [Lantus] Isosorbide Mononitrate [Imdur] 30 mg PO DAILY 10/13/16 10/12/16 Lisinopril [Zestril] 20 mg PO DAILY 10/13/16 10/13/16 Metoprolol Tartrate [Lopressor] 25 mg PO BID 10/13/16 10/13/16 Nabumetone [Relafen] 500 mg PO BID 10/13/16 10/13/16 Ranitidine HCl [Zantac] 150 mg PO BID 10/13/16 10/13/16 Simvastatin 20 mg PO HS 10/13/16 10/12/16 metFORMIN HCL [Metformin HCl ER] 1,000 mg PO BID 10/13/16 10/13/16 Albuterol Sulfate/Ipratropium 3 ml IH QID 05/08/17 Unknown [Duoneb 2.5-0.5MG/3ML Soln] Aspirin 81 mg PO DAILY 05/08/17 Unknown Famotidine 20 mg PO BID 05/08/17 Unknown - Patient's Past Medical History Patient History - Medical: Diabetes Type 2 Insulin Dependent, Depression, GERD, Obesity Patient History - Cardiac/Respiratory: Coronary Heart Disease, CVA/Stroke, Hypertension Patient History - Cancer: No Hx of Cancer Patient History - Surgical Procedures: Total Knee Replacement, Other Patient History - Other: None - Family History Mother Family History - Medical: , Diabetes Type 2 Family History - Cardiac/Respiratory: CHF, Hypertension Father Family History - Medical: Family History - Cardiac/Respiratory: Hypertension - Social History Living Situations: home Abuse History: No History of abuse Psych History: No pertinent hx Smoking Status: Current every day smoker Have you smoked in the past 12 months: Yes Alcohol Use: none Drug Use: none - Immunizations Immunizations Up to Date: Yes Hx Pneumococcal Vaccination: Yes History of Influenza Vaccine: Yes Procedures EXCISION OF RIGHT METATARSAL, OPEN APPROACH (12/19/16) Medications - Medications Current Medications: Current Medications Chlorhexidine Gluconate (Hibiclens 4%) 1 appl TP BID [facility] Stop: 06/08/17 21:01 Last Admin: 05/10/17 09:45 Dose: 1 appl Citalopram Hydrobromide (Celexa) 20 mg PO DAILY CLARITZA Stop: 06/08/17 09:01 Last Admin: 05/10/17 09:45 Dose: 20 mg Gabapentin (Neurontin) 600 mg PO BID CLARITZA Stop: 06/07/17 22:01 Last Admin: 05/10/17 09:44 Dose: 600 mg Glimepiride (Amaryl) 2 mg PO DAILY CL[facility]ITZA Stop: 06/08/17 09:01 Last Admin: 05/10/17 09:45 Dose: 2 mg Clindamycin Phosphate 600 mg/ (Dextrose/Water) 104 mls @ 300 mls/hr IV Q8H [facility]ZA PRN Reason: Protocol Stop: 06/09/17 07:31 Last Infusion: 05/10/17 07:43 Dose: Infused Sodium Chloride (Sodium Chloride 0.45%) 1,000 mls @ 70 mls/hr IV .[id number] PRN PRN Reason: HYRDATION Stop: 06/09/17 08:06 Last Admin: 05/10/17 10:34 Dose: 70 mls/hr Insulin Human Lispro (Humalog) 0 units SC [facility] PRN Reason: Protocol Stop: 06/08/17 07:01 Last Admin: 05/10/17 11:12 Dose: Not Given Isosorbide Mononitrate (Imdur) 30 mg PO DAILY [facility] Stop: 06/08/17 09:01 Last Admin: 05/10/17 09:45 Dose: 30 mg Metoprolol Tartrate (Lopressor) 25 mg PO BID [facility] Stop: 06/07/17 22:01 Last Admin: 05/10/17 09:45 Dose: 25 mg Pantoprazole Sodium (Protonix) 40 mg PO DAILY@0700 [facility] Stop: 06/09/17 07:01 Last Admin: 05/10/17 07:10 Dose: 40 mg Saccharomyces Boulardii (Florastor) 250 mg PO BID [facility] Stop: 06/07/17 21:01 Last Admin: 05/10/17 09:44 Dose: 250 mg Review of Systems - Review of Systems Neurological: Present: Numbness Skin: Present: Other - ulceration right foot, redness right lower leg and foot Misc: All systems neg except as marked Physical Examination - Exam Vital Signs: Vital Signs - Last Taken Temp 36.9 C 05/10/17 06:32 Pulse 76 05/10/17 09:45 Resp 18 05/10/17 06:32 BP 133/68 05/10/17 09:45 Pulse Ox 95 05/10/17 06:32 O2 Oxygen Delivery Method Room Air Constitutional: Present: Alert, Oriented x3, Cooperative, No distress Peripheral Pulses: dorsalis-pedis (R): 0 - non-palpable, could be secondary to edema vs PVD Extremity: Present: lower extremity edema Skin Exam: Present: other - Ulceration to lateral right foot unchanged from recent wound center visit 05/08/2017. Erythema has improved over last 48 hours on IV ABX. Now localized to foot and ankle. Foot still warm to touch. Neurologic: Present: sensory deficit Appearance: Present: appropriate appearance - Results and Findings: Narrative: Xray/MRI results reviewed with pt in room. Concerning for diffuse osteomyelitis vs acute Charcot event. Lab/Microbiology results last 24 hrs: Abnormal/Pending Laboratory Last 24 HRS 05/10/17 05/10/17 05/10/17 06:00 05:49 05:49 RBC 2.78 L Hgb 8.0 L Hct 24.9 L RDW 15.9 H MPV 10.8 H Immature Gran % (Auto) 0.60 H Lymphocytes % 19.1 L Lymphocytes # 1.0 L ESR 106 H Carbon Dioxide 20.6 L Anion Gap 14.6 H Creatinine 2.13 H D Est GFR (Non-Af Amer) 34 L D BUN/Creatinine Ratio 8.0 L Random Glucose 52 L Calcium 7.6 L Culture 05/08/17 22:26 Wound Culture - Preliminary Foot - Right Staphylococcus Species - Assessments/Findings (1) Cellulitis of right lower extremity Diagnosis(s): Continue IV ABX at this time. Pt is responding well. Problem: Acute (2) Osteomyelitis of right foot Diagnosis(s): Discussed with the pt at length results of xray/MRI. Discussed that the best way to differentiate between a Charcot event vs osteomyelitis is with a bone culture. If osteo, would require 6-8 weeks of ABX therapy with potential of future amputation if he does not respond vs likely BKA. If Charcot, would need offloading. After discussing with family, pt would like to go ahead with the bone culture. Verbal consent is obtained from the patient at bedside. The site of culture at the navicular bone is blocked with 3mL of a 1:1 mix of Lidocaine 1% and Marcaine 0.5% without EPI. The site is then prepped with chlorhexadine. A #15 blade is then utilized to create a stab incision. A Mango needle is obtained and, with trochar, is advanced down to level of bone. Once bone is reached, trochar is removed and a sample of bone is obtained. The needle is then removed and specimen placed in cup. Hemostasis is achieved with compression at the site. Stab incision is covered with a steri-strip and dressed with a sterile compressive dressing. Pt tolerated the procedure well without complication. Will await results for further treatment plan. 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 New dressing applied today after bone culture. Problem: Chronic
[2017-05-10] MEDS: HYDROcodone/ACETAMINOPHEN 1 EACH TABLET PO PRN (13:46)
--- NOTE | 2017-05-11 06:23 | PN ---
Subjective - Date and Time Seen Date: 05/11/17 Time: 06:21 Subjective Narrative: feeling better. erythema on right lower leg is improving. no fevers. Objective - Review of Systems Generalized/Overall Review: Reports: No Symptoms Reported EENTM: Reports: No Symptoms Reported Respiratory: Reports: No Symptoms Reported Cardiac: Reports: No Symptoms Reported Abdominal: Reports: No Symptoms Reported Genitourinary Symptoms: Reports: No Symptoms Reported Musculoskeletal Complaints: Reports: No Symptoms Reported Neurological: Reports: No Symptoms Reported Skin: Reports: No Symptoms Reported Endocrine: Reports: No Symptoms Reported Misc: All systems neg except as marked - Vitals Vitals: Last Vital Signs Temp 36.9 C 05/11/17 03:32 Pulse 93 05/11/17 03:32 Resp 18 05/11/17 03:32 BP 145/73 05/11/17 03:32 Pulse Ox 90 05/11/17 03:32 - Abnormal Lab Findings Abnormal Lab Findings: Abnormal Lab Results 05/10/17 Range/Units 06:00 ESR 106 H (0-10) mm/hr - Exam Constitutional: Present: Alert, Cooperative, No distress, Looks Older than stated age ENT Exam: Present: hearing grossly normal Neck: Present: full range of motion, supple Breasts: Present: Exam deferred Respiratory: Present: lungs clear, normal breath sounds Cardiovascular/Chest: Present: normal peripheral pulses, regular rate, rhythm Abdomen: Present: soft, nontender, nondistended /Rectal: Present: Exam deferred Extremity: Present: non-tender, normal inspection Skin Exam: Present: warm/dry, no cyanosis, pallor Assessment/Plan Plan Narrative: Cellulitis of right lower extremity - history of MRSA - will treat to cover - Antibiotics - clindamycin 600 mg q 8 hours - day #2 - Vancomycin stopped due to elevated creatinine - Zosyn 3.375 mg iv q 8 hours - Day #4 - Previous oral antibiotic therapy - Ciprofloxacin started 04/16/17 for 21 days. - constitutes failure of outpatient treatment - Dressing change daily per Dr Glynn's wound care notes - wash with soap and water. redress with Aquacel Aq, cover with dry dressing of guaze and ruth, then secure with Tavo bandage. - culture of right lateral foot ulcer pending - prelim growing staph species, awaiting final culture. - MRI of right foot shows extensive osteomyelitis - Consult Dr Glynn - bone bx done by dr glynn 05/10/17 Diabetic ulcer right foot - see above plan of care Anemia - s/p 2 units PRBCs - am labs pending Acute Kidney Injury - admission creatinine 1.75 (baseline 0.7-1.0) - am labs pending - over 2.0 on 05/10/17 - hydrate with NS since no known history CHF Diabetes - accu-check QID with sliding scale insulin as needed (low dose) - continue metformin, amaryl - lantus dc'd due to low blood sugar - consistent carb diet CAD - history 3v mild to moderate non-obstructing CAD per angiogram in 2008 - continue lopressor Hx CVA - required use of TPA in 2008 GERD - start protonix po HTN - vital signs q 4 hours - hold lisinopril for now due to elevated creatinine tobacco abuse - smoking cessation Code status: DNR VTE: no lovenox due to anemia ; no SCDs due to lower extremity wound. 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 Problem: Chronic (6) DM type 2 (diabetes mellitus, type 2) Problem: Chronic Qualifiers: Diabetes mellitus complication status: with skin complications Diabetes mellitus complication detail: with foot ulcer Diabetes mellitus long-term insulin use: with long-term use Qualified Code(s): E11.621 - Type 2 diabetes mellitus with foot ulcer; L97.509 - Non-pressure chronic ulcer of other part of unspecified foot with unspecified severity; Z79.4 - intermediate teacher (current) use of insulin (7) Hypertension Problem: Chronic Qualifiers: Hypertension type: essential hypertension Qualified Code(s): I10 - Essential (primary) hypertension (8) GERD (gastroesophageal reflux disease) Problem: Chronic Qualifiers: Esophagitis presence: esophagitis presence not specified Qualified Code(s) : K21.9 - Gastro-esophageal reflux disease without esophagitis (9) CVA (cerebral vascular accident) Problem: Chronic Qualifiers: CVA mechanism: unspecified Qualified Code(s): I63.9 - Cerebral infarction, unspecified (10) CAD (coronary artery disease) Problem: Chronic Qualifiers: Coronary Disease-Associated Artery/Lesion type: [place] artery [place] vs. transplanted heart: [place] heart Associated angina: angina presence unspecified Qualified Code(s): I25.10 - Atherosclerotic heart disease of [place] coronary artery without angina pectoris
[2017-05-11 06:26] LABS: Hematocrit 27.5 % (42.0-52.0); Hemoglobin 8.9 gm/dL (13.5-18.0); Mean Cell Volume 89.3 fl (78-100); Mean Corpuscular Hemoglobin 28.9 pg (27-31); Mean Corpuscular Hgb Conc 32.4 g/dl (32-36); Mean Platelet Volume 10.3 fl (6.0-9.5); Neutrophil # 4.6 K/mm3 (1.3-6.0); Neutrophil % 75.4 % (42-75.0); Platelet Count 195 K/mm3 (150-450); Red Blood Count 3.08 M/mm3 (4.7-6.0); Red Cell Distribution Width 16.3 % (11.5-14.0); White Blood Count 6.1 K/mm3 (4.0-10.5)
[2017-05-11 06:43] LABS: Albumin * 1.8 gm/dl (3.4-5.0); Anion Gap 15.5 mmol/L (6.8-13.8); BUN/Creatinine Ratio 8.1 (9.0-21.6); Bilirubin, Total 0.6 mg/dL (0.0-1.1); Ca. Corrected For Albumin 9.4 mg/dL (8.4-10.2); Carbon Dioxide 21.1 mmol/L (24-32.6); Potassium 4.6 mmol/L (3.4-4.6); Total Protein 6.9 gm/dL (6.2-8.2)
[2017-05-11] MEDS: INSULIN LISPRO 100 UNITS/ML VIAL SC SCH ×4 (07:10→21:01)
[2017-05-11] MEDS: PANTOPRAZOLE SODIUM 40 MG TABLET.EC PO SCH (07:11)
[2017-05-11] MEDS: CLINDAMYCIN PHOSPHATE 600 MG in DEXTROSE 5 % IN WATER 100 ML IV SCH ×6 (07:19→22:51)
[2017-05-11] MEDS: HYDROcodone/ACETAMINOPHEN 1 EACH TABLET PO PRN (07:20)
[2017-05-11] MEDS: 0.5 NORMAL SALINE 1,000 ML IV PRN ×2 (08:32→17:33)
[2017-05-11] MEDS: SACCHAROMYCES BOULARDII 250 MG CAPSULE PO SCH ×2 (08:33→20:57)
[2017-05-11] MEDS: CITALOPRAM HYDROBROMIDE 20 MG TABLET PO SCH (08:34)
[2017-05-11] MEDS: GABAPENTIN 300 MG CAPSULE PO SCH ×2 (08:34→20:57)
[2017-05-11] MEDS: ISOSORBIDE MONONITRATE 30 MG TAB.SR.24H PO SCH (08:34)
[2017-05-11] MEDS: GLIMEPIRIDE 2 MG TABLET PO SCH (08:34)
[2017-05-11] MEDS: CHLORHEX GL/ISOPROPYL ALCOHOL 960 APPL BTL TP SCH ×2 (08:34→20:57)
[2017-05-11] MEDS: METOPROLOL TARTRATE 25 MG TABLET PO SCH ×2 (08:34→20:57)
[2017-05-11] MEDS: ALBUTEROL SULFATE/IPRATROPIUM 3 ML NEBU IH PRN (20:11)
[2017-05-12] MEDS: 0.5 NORMAL SALINE 1,000 ML IV PRN ×3 (02:42→20:53)
--- NOTE | 2017-05-12 05:40 | PN ---
Subjective - Date and Time Seen Date: 05/12/17 Time: 05:35 Subjective Narrative: RLE cellulitis / erythema improving. anxious to discharge from hospital. Objective - Review of Systems Generalized/Overall Review: Reports: No Symptoms Reported EENTM: Reports: No Symptoms Reported Respiratory: Reports: No Symptoms Reported Cardiac: Reports: No Symptoms Reported Abdominal: Reports: No Symptoms Reported Genitourinary Symptoms: Reports: No Symptoms Reported Musculoskeletal Complaints: Reports: No Symptoms Reported Neurological: Reports: No Symptoms Reported Skin: Reports: No Symptoms Reported Endocrine: Reports: No Symptoms Reported Misc: All systems neg except as marked - Vitals Vitals: Last Vital Signs Temp 36.8 C 05/12/17 03:00 Pulse 92 05/12/17 03:00 Resp 112 H 05/12/17 03:00 BP 152/81 05/12/17 03:00 Pulse Ox 89 L 05/12/17 03:00 - Abnormal Lab Findings Abnormal Lab Findings: Abnormal Lab Results 05/11/17 05/11/17 Range/Units 06:10 06:10 RBC 3.08 L (4.7-6.0) M/mm3 Hgb 8.9 L (13.5-18.0) gm/dL Hct 27.5 L (42.0-52.0) % RDW 16.3 H (11.5-14.0) % MPV 10.3 H (6.0-9.5) fl Immature Gran % (Auto) 1.00 H (0.001-0.429) % Immature Gran # (Auto) 0.06 H (0.000-0.0310) K/mm3 Neutrophils % 75.4 H (42-75.0) % Lymphocytes % 15.8 L (20-51) % Lymphocytes # 1.0 L (1.5-3.5) k/mm3 Carbon Dioxide 21.1 L (24-32.6) mmol/L Anion Gap 15.5 H (6.8-13.8) mmol/L Creatinine 2.35 H (0.4-1.4) mg/dL Est GFR (Non-Af Amer) 30 L (60-130) mL/min BUN/Creatinine Ratio 8.1 L (9.0-21.6) ALT 9 L (19-67) U/L Albumin 1.8 L (3.4-5.0) gm/dl - Exam Constitutional: Present: Alert, Cooperative, No distress ENT Exam: Present: hearing grossly normal Neck: Present: full range of motion, supple Breasts: Present: Exam deferred Respiratory: Present: lungs clear, normal breath sounds, no accessory muscle use Cardiovascular/Chest: Present: normal peripheral pulses, regular rate, rhythm Abdomen: Present: Normal bowel sounds, soft, nontender, nondistended /Rectal: Present: Exam deferred Extremity: Present: inflammation - RLE - right foot to just above right ankle, lower extremity edema - trace to +1 RLE edema Skin Exam: Present: normal color, warm/dry, no cyanosis Assessment/Plan Plan Narrative: Cellulitis of right lower extremity - right foot ulcer grew MRSA - sensitive to clindamycin - vanco TERESSA 2 - will treat to cover - Antibiotics - clindamycin 600 mg q 8 hours - day #3 - Previous oral antibiotic therapy - Ciprofloxacin started 04/16/17 for 21 days. - constitutes failure of outpatient treatment - Dressing change daily per Dr Glynn's wound care notes - wash with soap and water. redress with Aquacel Aq, cover with dry dressing of guaze and ruth, then secure with Tavo bandage. - MRI of right foot shows extensive osteomyelitis - Consult Dr Glynn - bone bx done by dr glynn 05/10/17 - prelim culture shows no growth - will need culture to be final before discharge. Diabetic ulcer right foot - see above plan of care Anemia - s/p 2 units PRBCs - am labs pending Acute Kidney Injury - admission creatinine 1.75 (baseline 0.7-1.0) - am labs pending - over 2.0 on 05/10/17 - hydrate with NS since no known history CHF Diabetes - accu-check QID with sliding scale insulin as needed (low dose) - continue metformin, amaryl - lantus dc'd due to low blood sugar - consistent carb diet CAD - history 3v mild to moderate non-obstructing CAD per angiogram in 2008 - continue lopressor Hx CVA - required use of TPA in 2008 GERD - protonix po HTN - vital signs q 4 hours - hold lisinopril for now due to elevated creatinine tobacco abuse - smoking cessation Code status: DNR VTE: no lovenox due to anemia ; no SCDs due to lower extremity wound. 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 Problem: Chronic (6) DM type 2 (diabetes mellitus, type 2) Problem: Chronic Qualifiers: Diabetes mellitus complication status: with skin complications Diabetes mellitus complication detail: with foot ulcer Diabetes mellitus [employer] insulin use: with [employer] use Qualified Code(s): E11.621 - Type 2 diabetes mellitus with foot ulcer; L97.509 - Non-pressure chronic ulcer of other part of unspecified foot with unspecified severity; Z79.4 - halfway (current) use of insulin (7) Hypertension Problem: Chronic Qualifiers: Hypertension type: essential hypertension Qualified Code(s): I10 - Essential (primary) hypertension (8) GERD (gastroesophageal reflux disease) Problem: Chronic Qualifiers: Esophagitis presence: esophagitis presence not specified Qualified Code(s) : K21.9 - Gastro-esophageal reflux disease without esophagitis (9) CVA (cerebral vascular accident) Problem: Chronic Qualifiers: CVA mechanism: unspecified Qualified Code(s): I63.9 - Cerebral infarction, unspecified (10) CAD (coronary artery disease) Problem: Chronic Qualifiers: Coronary Disease-Associated Artery/Lesion type: [place] artery [place] vs. transplanted heart: [place] heart Associated angina: angina presence unspecified Qualified Code(s): I25.10 - Atherosclerotic heart disease of [place] coronary artery without angina pectoris
[2017-05-12 06:29] LABS: Mean Corpuscular Hemoglobin 28.5 pg (27-31); Mean Corpuscular Hgb Conc 32.1 g/dl (32-36); Mean Platelet Volume 10.9 fl (6.0-9.5); Neutrophil # 3.6 K/mm3 (1.3-6.0); Neutrophil % 71.2 % (42-75.0); Platelet Count 158 K/mm3 (150-450); Red Blood Count 2.63 M/mm3 (4.7-6.0); Red Cell Distribution Width 16.1 % (11.5-14.0)
[2017-05-12 06:32] LABS: Hematocrit 23.4 % (42.0-52.0); Hemoglobin 7.5 gm/dL (13.5-18.0)
[2017-05-12] MEDS: INSULIN LISPRO 100 UNITS/ML VIAL SC SCH ×4 (06:38→20:30)
[2017-05-12] MEDS: PANTOPRAZOLE SODIUM 40 MG TABLET.EC PO SCH (06:39)
[2017-05-12 06:49] LABS: AST 25 U/L (0-48); Albumin * 1.6 gm/dl (3.4-5.0); Alkaline Phosphatase * 142 U/L (50-170); Anion Gap 14.5 mmol/L (6.8-13.8); BUN/Creatinine Ratio 8.5 (9.0-21.6); Bilirubin, Total 0.6 mg/dL (0.0-1.1); Blood Urea Nitrogen 23 mg/dL (6-23); Ca. Corrected For Albumin 9.4 mg/dL (8.4-10.2); Calcium * 7.8 mg/dL (7.9-10.9); Carbon Dioxide 21.2 mmol/L (24-32.6); Chloride 101 mmol/L (97-106); Glucose * 142 mg/dL (70-110); Potassium 4.7 mmol/L (3.4-4.6); Sodium 132 mmol/L (132-142); Total Protein 6.3 gm/dL (6.2-8.2)
[2017-05-12] MEDS: CLINDAMYCIN PHOSPHATE 600 MG in DEXTROSE 5 % IN WATER 100 ML IV SCH ×6 (06:55→23:20)
[2017-05-12] MEDS: METOPROLOL TARTRATE 25 MG TABLET PO SCH ×2 (08:25→20:30)
[2017-05-12] MEDS: GLIMEPIRIDE 2 MG TABLET PO SCH (08:25)
[2017-05-12] MEDS: SACCHAROMYCES BOULARDII 250 MG CAPSULE PO SCH ×2 (08:25→20:29)
[2017-05-12] MEDS: ISOSORBIDE MONONITRATE 30 MG TAB.SR.24H PO SCH (08:25)
[2017-05-12] MEDS: CITALOPRAM HYDROBROMIDE 20 MG TABLET PO SCH (08:25)
[2017-05-12] MEDS: CHLORHEX GL/ISOPROPYL ALCOHOL 960 APPL BTL TP SCH ×2 (08:25→20:29)
[2017-05-12] MEDS: GABAPENTIN 300 MG CAPSULE PO SCH ×2 (08:26→20:31)
[2017-05-12 15:49] LABS: Urine Appearance Cloudy; Urine Bilirubin Negative (NEGATIVE); Urine Color Dark Yellow
[2017-05-12 15:50] LABS: Urine Bacteria 1+; Urine Blood 250 /ul (NEGATIVE); Urine Ketone Negative (NEGATIVE); Urine Nitrite Negative (NEGATIVE); Urine Protein 100 mg/dL (NEGATIVE); Urine RBC >50 /hpf (0-5); Urine Specific Gravity 1.015 SP.GR. (1.005-1.030); Urine Urobilinogen Normal (NORMAL); Urine WBC 0-5 /hpf (0-5)
[2017-05-12] MEDS: ALBUTEROL SULFATE/IPRATROPIUM 3 ML NEBU IH PRN (21:49)
[2017-05-13] MEDS: 0.5 NORMAL SALINE 1,000 ML IV PRN ×2 (05:02→14:23)
[2017-05-13 06:05] LABS: Hematocrit 25.6 % (42.0-52.0); Hemoglobin 8.2 gm/dL (13.5-18.0); Mean Cell Volume 89.8 fl (78-100); Mean Corpuscular Hemoglobin 28.8 pg (27-31); Mean Platelet Volume 10.8 fl (6.0-9.5); Neutrophil # 3.9 K/mm3 (1.3-6.0); Neutrophil % 73.8 % (42-75.0); Platelet Count 165 K/mm3 (150-450); Red Blood Count 2.85 M/mm3 (4.7-6.0); Red Cell Distribution Width 16.2 % (11.5-14.0); White Blood Count 5.2 K/mm3 (4.0-10.5)
[2017-05-13 06:19] LABS: Albumin * 1.7 gm/dl (3.4-5.0); Anion Gap 14.7 mmol/L (6.8-13.8); BUN/Creatinine Ratio 8.4 (9.0-21.6); Bilirubin, Total 0.6 mg/dL (0.0-1.1); Ca. Corrected For Albumin 9.3 mg/dL (8.4-10.2); Calcium * 7.8 mg/dL (7.9-10.9); Carbon Dioxide 21.1 mmol/L (24-32.6); Potassium 4.8 mmol/L (3.4-4.6); Total Protein 6.7 gm/dL (6.2-8.2)
[2017-05-13 06:24] LABS: Iron 22 mcg/dL (35-120); Transferrin Sat. (% Sat.) 14 % (15-55)
[2017-05-13] MEDS: PANTOPRAZOLE SODIUM 40 MG TABLET.EC PO SCH (06:48)
[2017-05-13] MEDS: INSULIN LISPRO 100 UNITS/ML VIAL SC SCH ×4 (06:51→20:57)
[2017-05-13] MEDS: CLINDAMYCIN PHOSPHATE 600 MG in DEXTROSE 5 % IN WATER 100 ML IV SCH ×6 (08:09→23:11)
[2017-05-13] MEDS: METOPROLOL TARTRATE 25 MG TABLET PO SCH ×2 (08:10→20:56)
[2017-05-13] MEDS: CITALOPRAM HYDROBROMIDE 20 MG TABLET PO SCH (08:11)
[2017-05-13] MEDS: GLIMEPIRIDE 2 MG TABLET PO SCH (08:11)
[2017-05-13] MEDS: GABAPENTIN 300 MG CAPSULE PO SCH ×2 (08:11→20:57)
[2017-05-13] MEDS: ISOSORBIDE MONONITRATE 30 MG TAB.SR.24H PO SCH (08:11)
[2017-05-13] MEDS: SACCHAROMYCES BOULARDII 250 MG CAPSULE PO SCH ×2 (08:12→20:55)
[2017-05-13] MEDS: CHLORHEX GL/ISOPROPYL ALCOHOL 960 APPL BTL TP SCH ×2 (11:31→21:00)
[2017-05-13] MEDS: ALBUTEROL SULFATE/IPRATROPIUM 3 ML NEBU IH PRN (17:12)
--- NOTE | 2017-05-13 23:42 | PN ---
Subjective - Date and Time Seen Date: 05/13/17 Time: 17:15 Subjective Narrative: Reports doing well. No concerns. Pain controlled. Reports dark urine but making good amount of urine. No fever or chills. Objective - Vitals Vitals: Last Vital Signs Temp 37.0 C 05/13/17 19:06 Pulse 111 H 05/13/17 20:56 Resp 24 H 05/13/17 19:06 BP 135/80 05/13/17 20:56 Pulse Ox 93 05/13/17 19:06 - Abnormal Lab Findings Abnormal Lab Findings: Abnormal Lab Results 05/13/17 05/13/17 05/13/17 Range/Units 05:40 05:40 05:40 RBC 2.85 L (4.7-6.0) M/mm3 Hgb 8.2 L (13.5-18.0) gm/dL Hct 25.6 L (42.0-52.0) % RDW 16.2 H (11.5-14.0) % MPV 10.8 H (6.0-9.5) fl Immature Gran % (Auto) 0.80 H (0.001-0.429) % Immature Gran # (Auto) 0.04 H (0.000-0.0310) K/mm3 Lymphocytes % 12.4 L (20-51) % Monocytes % 11.3 H (0.0-9) % Lymphocytes # 0.7 L (1.5-3.5) k/mm3 Sodium 131 L (132-142) mmol/L Potassium 4.8 H (3.4-4.6) mmol/L Carbon Dioxide 21.1 L (24-32.6) mmol/L Anion Gap 14.7 H (6.8-13.8) mmol/L BUN 27 H (6-23) mg/dL Creatinine 3.23 H D (0.4-1.4) mg/dL Est GFR (Non-Af Amer) 21 L (60-130) mL/min BUN/Creatinine Ratio 8.4 L (9.0-21.6) Random Glucose 183 H (70-110) mg/dL Calcium 7.8 L (7.9-10.9) mg/dL Iron 22 L (35-120) mcg/dL TIBC 159 L (260-445) mcg/dL Transferrin % Sat 14 L (15-55) % ALT 13 L (19-67) U/L Albumin 1.7 L (3.4-5.0) gm/dl - Exam Constitutional: Present: Alert, Oriented x3, Cooperative ENT Exam: Present: hearing grossly normal Respiratory: Present: lungs clear, normal breath sounds Cardiovascular/Chest: Present: regular rate, rhythm, no murmur Abdomen: Present: Normal bowel sounds, soft, nontender, nondistended Cauti Physician Documentation - Urinary Catheter Management Urethral (Cantrell) Date of Insertion: 05/12/17 Time of Insertion: 15:22 Assessment/Plan Plan Narrative: Creatinine not improved, may be a delayed response after cantrell should be treating bladder obstruction. If creatinine continues to rise may need to have cysto sooner than latter and may need to transfer patient to [facility]. Otherwise he would have to wait several days for cysto here. Cellulitis improved. Bone culture negative. - Problems/Diagnosis (1) ALEK (acute kidney injury) Problem: Acute (2) Bladder mass Problem: Acute (3) Cellulitis and abscess of foot Problem: Acute (4) Osteomyelitis of right foot Problem: Acute Qualifiers: Osteomyelitis type: unspecified type Qualified Code(s): M86.9 - Osteomyelitis, unspecified (5) Diabetic foot ulcer associated with type 2 diabetes mellitus Problem: Chronic Qualifiers: Laterality: right Qualified Code(s): E11.621 - Type 2 diabetes mellitus with foot ulcer; L97.519 - Non-pressure chronic ulcer of other part of right foot with unspecified severity
[2017-05-14] MEDS: ALBUTEROL SULFATE/IPRATROPIUM 3 ML NEBU IH PRN ×4 (00:29→19:47)
[2017-05-14 06:03] LABS: Anion Gap 14.5 mmol/L (6.8-13.8); BUN/Creatinine Ratio 8.9 (9.0-21.6); Calcium * 8.2 mg/dL (7.9-10.9); Carbon Dioxide 20.3 mmol/L (24-32.6); Estimated Creat Clear 27.6; Potassium 4.8 mmol/L (3.4-4.6)
[2017-05-14] MEDS: INSULIN LISPRO 100 UNITS/ML VIAL SC SCH ×4 (06:37→21:17)
[2017-05-14] MEDS: PANTOPRAZOLE SODIUM 40 MG TABLET.EC PO SCH (06:38)
[2017-05-14] MEDS: CLINDAMYCIN PHOSPHATE 600 MG in DEXTROSE 5 % IN WATER 100 ML IV SCH ×6 (06:48→23:33)
[2017-05-14] MEDS ORDERED: FUROSEMIDE 10 MG/ML VIAL IV PRN (07:33)
[2017-05-14] MEDS ORDERED: FUROSEMIDE 10 MG/ML VIAL ONE (08:00)
[2017-05-14] MEDS: CITALOPRAM HYDROBROMIDE 20 MG TABLET PO SCH (08:05)
[2017-05-14] MEDS: SACCHAROMYCES BOULARDII 250 MG CAPSULE PO SCH ×2 (08:05→21:11)
[2017-05-14] MEDS: ISOSORBIDE MONONITRATE 30 MG TAB.SR.24H PO SCH (08:05)
[2017-05-14] MEDS: CHLORHEX GL/ISOPROPYL ALCOHOL 960 APPL BTL TP SCH ×2 (08:05→21:20)
[2017-05-14] MEDS: GLIMEPIRIDE 2 MG TABLET PO SCH (08:05)
[2017-05-14] MEDS: METOPROLOL TARTRATE 25 MG TABLET PO SCH ×2 (08:06→21:12)
[2017-05-14] MEDS: GABAPENTIN 300 MG CAPSULE PO SCH ×2 (08:06→21:11)
--- NOTE | 2017-05-14 16:42 | PN ---
Subjective - Date and Time Seen Date: 05/14/17 Time: 16:42 Subjective Narrative: Pt is evaluated at bedside resting. Denies any N/V/F/C. Denies pain to his right foot. Dressing is being changed as ordered. He continues to bear weight in a surgical shoe. States that a mass has been found on his bladder and is awaiting further treatment. Objective - Review of Systems Neurological: Reports: Numbness Skin: Reports: Other - Ulceration right foot. - Vitals Vitals: Last Vital Signs Temp 36.3 C L 05/14/17 15:04 Pulse 99 05/14/17 15:04 Resp 20 05/14/17 15:04 BP 138/81 05/14/17 15:04 Pulse Ox 96 05/14/17 15:04 - Abnormal Lab Findings Abnormal Lab Findings: Abnormal Lab Results 05/14/17 Range/Units 05:30 Sodium 131 L (132-142) mmol/L Potassium 4.8 H (3.4-4.6) mmol/L Carbon Dioxide 20.3 L (24-32.6) mmol/L Anion Gap 14.5 H (6.8-13.8) mmol/L BUN 32 H (6-23) mg/dL Creatinine 3.58 H (0.4-1.4) mg/dL Est GFR (Non-Af Amer) 19 L (60-130) mL/min BUN/Creatinine Ratio 8.9 L (9.0-21.6) Random Glucose 138 H (70-110) mg/dL - Exam Constitutional: Present: Alert, Oriented x3, Cooperative Skin Exam: Present: other - Ulceration to lateral right foot now covered with dry, stable eschar tissue. No longer draining. Erythema near completely resolved with IV ABX. No tenderness to touch, no localized warmth to skin. Neurologic: Present: sensory deficit Appearance: Present: appropriate appearance Cauti Physician Documentation - Urinary Catheter Management Urethral (Narvaez) Date of Insertion: 05/12/17 Time of Insertion: 15:22 Assessment/Plan - Problems/Diagnosis (1) Cellulitis of right lower extremity Problem: Acute Narrative: Pt has responded well to IV ABX. Will likely require another 2-3 week of oral ABX upon d/c home. He is stable from my standpoint for d/c at this time when clear per PCP. (2) Osteomyelitis of right foot Problem: Acute Qualifiers: Osteomyelitis type: unspecified type Qualified Code(s): M86.9 - Osteomyelitis, unspecified Narrative: Will plan for another 2-3 weeks of oral ABX upon d/c home. 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 May cover with light dressing of gauze and tape or a dry bandaid. Continue to offload with surgical shoe until f/u. Will plan to f/u in wound center 1 week after d/ c from hospital.
[2017-05-14] MEDS ORDERED: HYDROPHILIC OINTMENT 454 APPL JAR TP PRN (17:08)
--- NOTE | 2017-05-14 23:27 | PN ---
Subjective - Date and Time Seen Date: 05/14/17 Time: 12:30 Subjective Narrative: Reports no concerns. Denies pain, fever, chills, nausea, or vomiting. Discussed with Dr. Alston, bone cx is negative. Patient will need 4 weeks of oral antibiotics and follow up in wound clinic. Ok per Podiatry to discharge to home. Objective - Vitals Vitals: Last Vital Signs Temp 36.9 C 05/14/17 22:50 Pulse 112 H 05/14/17 22:50 Resp 20 05/14/17 22:50 BP 151/84 05/14/17 22:50 Pulse Ox 93 05/14/17 22:50 - Abnormal Lab Findings Abnormal Lab Findings: Abnormal Lab Results 05/14/17 Range/Units 05:30 Sodium 131 L (132-142) mmol/L Potassium 4.8 H (3.4-4.6) mmol/L Carbon Dioxide 20.3 L (24-32.6) mmol/L Anion Gap 14.5 H (6.8-13.8) mmol/L BUN 32 H (6-23) mg/dL Creatinine 3.58 H (0.4-1.4) mg/dL Est GFR (Non-Af Amer) 19 L (60-130) mL/min BUN/Creatinine Ratio 8.9 L (9.0-21.6) Random Glucose 138 H (70-110) mg/dL - Exam Constitutional: Present: Alert, Oriented x3, Cooperative ENT Exam: Present: hearing grossly normal Respiratory: Present: lungs clear, normal breath sounds Cardiovascular/Chest: Present: regular rate, rhythm, no murmur Abdomen: Present: Normal bowel sounds, soft, nontender, nondistended Skin Exam: Present: normal color, warm/dry, no cyanosis Cauti Physician Documentation - Urinary Catheter Management Urethral (Cantrell) Reason for Continuing Indwelling Catheter: Obstruction/Retention Date of Insertion: 05/12/17 Time of Insertion: 15:22 Assessment/Plan Plan Narrative: Chay is a 57 yo male with: 1) Acute renal failure - Post renal failure secondary to obstruction. Bladder mass present. Cantrell in place. Creatinine worsening to 3.5. Patient has good urine output, dark urine. Discussed with urology who will plan to perform cystoscopy. This can be done inpatient if creatinine is not improving or if creatinine begins to improve may do this as outpatient. Expect creatinine to begin improving now that obstruction should be bypassed with cantrell. If creatinine continues to rise tomorrow will repeat retroperitoneal US. 2) Cellulitis and soft tissue infection. Sensitivity of wound to clinda. Will continue for 4 total weeks. Bone bx negative. Cellulitis has resolved, ok to discharge from this standpoint. 3) Renal mass, needs further evaluation with contrast enhanced CT, unable to at this time due to renal function. 4) Shortness of breath, improved. Secondary to volume overload, given lasix and improved. Patient had been given fluids for renal failure before it was known that this was a post renal failure. 5) Anemia - Blood loss gradual likely from bladder mass. Hgb stable. No further transfusions needed at this time. - Problems/Diagnosis (1) ALEK (acute kidney injury) Problem: Acute (2) Bladder mass Problem: Acute (3) Renal mass Problem: Acute (4) Anemia Problem: Acute Qualifiers: Anemia type: unspecified type Qualified Code(s): D64.9 - Anemia, unspecified (5) Cellulitis of right lower extremity Problem: Acute
[2017-05-15] MEDS: ALBUTEROL SULFATE/IPRATROPIUM 3 ML NEBU IH PRN (02:11)
[2017-05-15 06:30] LABS: Hematocrit 25.3 % (42.0-52.0); Hemoglobin 8.1 gm/dL (13.5-18.0); Mean Corpuscular Hemoglobin 28.8 pg (27-31); Mean Platelet Volume 10.8 fl (6.0-9.5); Neutrophil # 3.5 K/mm3 (1.3-6.0); Platelet Count 181 K/mm3 (150-450); Red Blood Count 2.81 M/mm3 (4.7-6.0); Red Cell Distribution Width 16.5 % (11.5-14.0); White Blood Count 4.8 K/mm3 (4.0-10.5)
[2017-05-15 06:47] LABS: Albumin * 1.6 gm/dl (3.4-5.0); Anion Gap 15.2 mmol/L (6.8-13.8); BUN/Creatinine Ratio 9.4 (9.0-21.6); Bilirubin, Total 0.5 mg/dL (0.0-1.1); Ca. Corrected For Albumin 9.7 mg/dL (8.4-10.2); Calcium * 8.1 mg/dL (7.9-10.9); Carbon Dioxide 21.2 mmol/L (24-32.6); Potassium 5.4 mmol/L (3.4-4.6); Total Protein 6.6 gm/dL (6.2-8.2)
[2017-05-15] MEDS: INSULIN LISPRO 100 UNITS/ML VIAL SC SCH ×2 (07:22→11:51)
[2017-05-15] MEDS: PANTOPRAZOLE SODIUM 40 MG TABLET.EC PO SCH (07:23)
[2017-05-15] MEDS ORDERED: SODIUM POLYSTYRENE SULFON/SORB 15 G/60 ML BTL PO ONE (08:49)
[2017-05-15] MEDS: GLIMEPIRIDE 2 MG TABLET PO SCH (08:52)
[2017-05-15] MEDS: ISOSORBIDE MONONITRATE 30 MG TAB.SR.24H PO SCH (08:52)
[2017-05-15] MEDS: GABAPENTIN 300 MG CAPSULE PO SCH (08:52)
[2017-05-15] MEDS: SACCHAROMYCES BOULARDII 250 MG CAPSULE PO SCH (08:52)
[2017-05-15] MEDS: METOPROLOL TARTRATE 25 MG TABLET PO SCH (08:52)
[2017-05-15] MEDS: CITALOPRAM HYDROBROMIDE 20 MG TABLET PO SCH (08:52)
[2017-05-15] MEDS: CLINDAMYCIN PHOSPHATE 600 MG in DEXTROSE 5 % IN WATER 100 ML IV SCH ×4 (08:53→14:56)
[2017-05-15] MEDS: CHLORHEX GL/ISOPROPYL ALCOHOL 960 APPL BTL TP SCH (08:54)
[2017-05-15] MEDS ORDERED: SODIUM POLYSTYRENE SULFON/SORB 15 G/60 ML BTL ONE (09:53)
[2017-05-15 10:54] VITALS: BP 152/84
[2017-06-06] MEDS ORDERED: CYANOCOBALAMIN 1,000 MCG/ML VIAL IM SCH (09:00)
--- NOTE | 2017-06-15 08:36 | DS ---
Transfer Discharge Summary - Diagnosis(s)/Problems (1) ALEK (acute kidney injury) Problem: Acute (2) Bladder mass Problem: Acute (3) Cellulitis and abscess of foot Problem: Acute (4) Osteomyelitis of right foot Problem: Acute (5) Diabetic foot ulcer associated with type 2 diabetes mellitus Problem: Chronic - Course Description of Stay: Chay is a 57 yo male that was admitted for cellulitis, diabetic foot ulcer, and possible ostemyelitis of right foot. An MRI was performed which showed possible osteo vs charcot. He was started on vancomycin, however creatinine begin to rise. Initially suspected this was related to vancomycin and it was discontinued. He was placed on clindamycin. Cellulitis improved. Podiatry was consulted and a bone culture was obtained and negative for growth. However creatinine continued to rise. A post void bladder scan showed greater than 1 liter of urine in the bladder. Narvaez was placed and this fluid was removed. Expected creatinine to improve over the next few days, but it continued to worsen. Discussed with urology who planned for a cystoscopy at this facility, but with creatinine continuing to rise transferred patient to [facility] to be evaluated sooner with cystoscopy and have nephrology consult. Procedures Performed: see notes below Procedures: 05/10/17 - Bone Biopsy performed by Podiatry - Medications Medications: Active Medications Discontinued Medications Acetaminophen (Tylenol) 650 mg PO ONCE ONE Stop: 05/08/17 21:48 Last Admin: 05/08/17 23:07 Dose: 650 mg Acetaminophen/Hydrocodone Bitart ([place] 5-325) 1 each PO Q4H PRN PRN Reason: Pain Stop: 06/09/17 13:16 Last Admin: 05/11/17 07:20 Dose: 1 each Albuterol/Ipratropium (Duoneb 2.5-0.5mg/3ml Soln) 3 ml IH QIDRT PRN PRN Reason: Wheezing Stop: 06/07/17 22:01 Last Admin: 05/15/17 02:11 Dose: 3 ml Chlorhexidine Gluconate (Hibiclens 4%) 1 appl TP BID CLARITZA Stop: 06/08/17 21:01 Last Admin: 05/15/17 08:54 Dose: 1 appl Citalopram Hydrobromide (Celexa) 20 mg PO DAILY CLARITZA Stop: 06/08/17 09:01 Last Admin: 05/15/17 08:52 Dose: 20 mg Diphenhydramine HCl (Benadryl) 25 mg IV ONCE ONE Stop: 05/08/17 21:48 Last Admin: 05/08/17 23:06 Dose: 25 mg Furosemide (Lasix) 40 mg IV ONCE PRN PRN Reason: ONE TIME ORDER Stop: 05/14/17 08:00 Last Admin: 05/14/17 08:04 Dose: 40 mg Gabapentin (Neurontin) 600 mg PO BID CLARITZA Stop: 06/07/17 22:01 Last Admin: 05/15/17 08:52 Dose: 600 mg Glimepiride (Amaryl) 2 mg PO DAILY CLARITZA Stop: 06/08/17 09:01 Last Admin: 05/15/17 08:52 Dose: 2 mg Piperacillin Sod/Tazobactam (Sod 3.375 gm/ Dextrose/Water) 100 mls @ 25 mls/hr IV Q8H CLARITZA PRN Reason: Protocol Stop: 06/07/17 17:46 Last Infusion: 05/10/17 06:10 Dose: Infused Vancomycin HCl 2 gm/ Dextrose/ (Water) 500 mls @ 165 mls/hr IV Q24H CLARITZA PRN Reason: Protocol Stop: 06/07/17 18:01 Last Admin: 05/08/17 22:30 Dose: 165 mls/hr Pantoprazole Sodium 40 mg/ (Sodium Chloride) 100 mls @ 400 mls/hr IV Q24H CLARITZA Stop: 06/07/17 21:16 Last Admin: 05/08/17 21:30 Dose: Not Given Sodium Chloride (Sodium Chloride 0.9%) 1,000 mls @ 125 mls/hr IV .Q8H PRN PRN Reason: HYDRATION Stop: 06/07/17 21:15 Last Infusion: 05/10/17 07:15 Dose: Infused Pantoprazole Sodium 40 mg/ (Sodium Chloride) 100 mls @ 400 mls/hr IV Q12H CLARITZA Stop: 06/07/17 22:01 Last Infusion: 05/09/17 21:24 Dose: Infused Vancomycin HCl 1 gm/ Dextrose/ (Water) 250 mls @ 140 mls/hr IV Q12H CLARITZA PRN Reason: Protocol Stop: 06/08/17 17:01 Last Infusion: 05/10/17 07:15 Dose: Infused Clindamycin Phosphate 600 mg/ (Dextrose/Water) 104 mls @ 300 mls/hr IV Q8H CLARITZA PRN Reason: Protocol Stop: 06/09/17 07:31 Last Admin: 05/15/17 14:56 Dose: 300 mls/hr Sodium Chloride (Sodium Chloride 0.45%) 1,000 mls @ 125 mls/hr IV .Q8H PRN PRN Reason: HYRDATION Stop: 06/09/17 08:06 Last Admin: 05/13/17 14:23 Dose: 125 mls/hr Insulin [facility]arg[facility] (Lantus) [facility] Stop: 06/08/17 09:01 Last Admin: 05/09/17 09:43 Dose: 30 units Insulin Glargine (Lantus) 60 units SC [facility] Stop: 06/07/17 22:01 Last Admin: 05/08/17 22:10 Dose: Not Given Insulin Glargine (Lantus) 30 units SC ONCE ONE Stop: 05/08/17 21:46 Last Admin: 05/08/17 22:06 Dose: 30 units Insulin Glargine (Lantus) 30 units SC [facility] Stop: 06/08/17 21:01 Last Admin: 05/09/17 21:13 Dose: Not Given Insulin Human Lispro (Humalog) 0 units SC [facility] PRN Reason: Protocol Stop: 06/08/17 07:01 Last Admin: 05/15/17 11:51 Dose: Not Given Isosorbide Mononitrate (Imdur) 30 mg PO DAILY [facility] Stop: 06/08/17 09:01 Last Admin: 05/15/17 08:52 Dose: 30 mg Metformin HCl (Glucophage) 1,000 mg PO BIDBRS [facility] Stop: 06/07/17 22:01 Last Admin: 05/10/17 07:08 Dose: Not Given Metoprolol Tartrate (Lopressor) 25 mg PO BID [facility] Stop: 06/07/17 22:01 Last Admin: 05/15/17 08:52 Dose: 25 mg Nabumetone (Relafen) 500 mg PO BID [facility] Stop: 06/07/17 22:01 Last Admin: 05/08/17 22:09 Dose: 500 mg Pantoprazole Sodium (Protonix) 40 mg PO DAILY@0700 [facility] Stop: 06/09/17 07:01 Last Admin: 05/15/17 07:23 Dose: 40 mg Saccharomyces Boulardii (Florastor) 250 mg PO BID [facility] Stop: 06/07/17 21:01 Last Admin: 05/15/17 08:52 Dose: 250 mg Sodium Polystyrene Sulfonate (Sodium Polystyrene Sulfonate) 30 g PO ONCE ONE Stop: 05/15/17 08:50 Last Admin: 05/15/17 09:50 Dose: 30 g - Disposition Disposition: [facility] Condition: Undetermined Discharge Date: 05/15/17
== END 2017-05-15 15:11 | disposition short-term general hospital (02) | DRG 580 ==
LOC: ER 14:51 → MS 17:26 → OBSVTOIN 21:07
PROVIDERS: ADMIT Family Medicine; ATTEND Family Medicine
PROC: 0QBL3ZX Excision of Right Tarsal, Percutaneous Approach, Diagnostic (ICD-10-PCS; principal; 2017-05-10)
DX: L03.115 Cellulitis of right lower limb (principal); M86.171 Other acute osteomyelitis, right ankle and foot; N17.9 Acute kidney failure, unspecified; D64.9 Anemia, unspecified; E11.621 Type 2 diabetes mellitus with foot ulcer; L97.519 Non-pressure chronic ulcer of other part of right foot with unspecified severity; K21.9 Gastro-esophageal reflux disease without esophagitis; I10 Essential (primary) hypertension; I25.10 Atherosclerotic heart disease of native coronary artery without angina pectoris; F17.210 Nicotine dependence, cigarettes, uncomplicated; Z79.4 Long term (current) use of insulin; Z79.82 Long term (current) use of aspirin; Z86.73 Personal history of transient ischemic attack (TIA), and cerebral infarction without residual deficits
CPT/HCPCS: 20240; 36415; 73630; 73720; 74176; 76770; 80048; 80053; 81001; 82272; 82570; 83540; 83550; 84133; 84300; 85025; 85379; 85652; 86140; 86850; 86900; 87040; 87070; 87077; 87081; 87186; 88108; 89050; 93971; 94640; 99284; P9016